=== PATIENT | female | born 1975 | race Caucasian/White ===

== ENCOUNTER 2017-11-22 21:18 | Emergency (ER) | END 2017-11-22 21:55 | disposition left against medical advice (07) ==

== ENCOUNTER 2019-02-17 07:42 | Day surgery (SDC) | payer OTHER ==
[~2019-02-17] VITALS: Ht 149.9 cm; Wt 58.6 kg
[2019-02-17] VITALS (12 sets, daily range): BP systolic 105–152; BP diastolic 60–70; PULSE 70–88; RESP 13–19; Ht 149.9 cm; Wt 58.6 kg
--- NOTE | 2019-02-17 07:51 | HPN ---
Date/Time of Note Date/Time of Note DATE: 02/17/19 TIME: 07:51 Interval H&P Admission Note Pt. seen H&P reviewed: No system changes SHANDRA MORALES MD Feb 17, 2019 07:51
[2019-02-17] MEDS ORDERED: CEFAZOLIN 1 GM/50 ML (PMX) 50 ML IVPB ONE ×2 (08:00→10:34)
[2019-02-17] MEDS ORDERED: POLYMYXIN/BACITRACIN 1L IRRIG IRR ONE (08:00)
[2019-02-17] MEDS ORDERED: SOD CHLORIDE 0.9% 1,000 ML IV SCH (08:00)
[2019-02-17] MEDS ORDERED: HEPARIN 1000 UNITS/ML 10 ML INJ ONE (08:56)
[2019-02-17] MEDS ORDERED: LIDOCAINE 1%/EPI (1:100,000) (MDV) 20 ML ONE (08:56)
[2019-02-17] MEDS ORDERED: MIDAZOLAM 1 MG/ML 2 ML INJ ONE (10:34)
[2019-02-17] MEDS ORDERED: FENTAnyl 50 MCG/ML VIAL ONE (10:34)
[2019-02-17] MEDS ORDERED: HYDROCODONE/APAP (5/325) TAB PO PRN (11:30)
== END 2019-02-17 14:05 | disposition home or self-care (01) ==
LOC: SDS 07:42
PROVIDERS: ATTEND Internal Medicine Hematology & Oncology
DX: C50.911 Malignant neoplasm of unspecified site of right female breast (principal)
CPT/HCPCS: 36561; 76942; C1788; J0690; J1644; J2250; J3010; Z7610

== ENCOUNTER 2019-03-03 12:01 | Inpatient (IN) | payer OTHER ==
[~2019-03-03] VITALS: Ht 152.4 cm; Wt 57.7 kg
[2019-03-03 17:15] VITALS: BP 123/69; PULSE 110; RESP 20
[2019-03-03 17:20] VITALS: Ht 152.4 cm; Wt 57.7 kg
[2019-03-03] MEDS ORDERED: ALBUTEROL/IPRATROPIUM (NEB) 3 ML AMP HHN PRN (18:00)
[2019-03-03] MEDS ORDERED: NITROGLYCERIN (SL) 0.4 MG TAB SL PRN (18:00)
[2019-03-03] MEDS ORDERED: LORAZEPAM 2 MG INJ IV PRN (18:00)
[2019-03-03] MEDS ORDERED: morphine 2 MG INJ IV PRN (18:00)
[2019-03-03] MEDS ORDERED: NACL 0.9% 3 ML SYG IV SCH (18:00)
[2019-03-03] MEDS ORDERED: hydrALAzine 20 MG INJ IV PRN (18:00)
[2019-03-03] MEDS ORDERED: MAGNESIUM HYDROXIDE 30ML CUP PO PRN (18:00)
[2019-03-03] MEDS ORDERED: ONDANSETRON 4 MG INJ IV PRN (18:00)
[2019-03-03] MEDS ORDERED: HYDROCODONE/APAP (5/325) TAB PO PRN (18:00)
[2019-03-03] MEDS ORDERED: DOCUSATE SODIUM 100 MG CAP PO PRN (18:00)
--- NOTE | 2019-03-03 18:51 | HP ---
DATE OF ADMISSION: 03/03/2019 IDENTIFICATION: This is a 43-year-old female. CHIEF COMPLAINT: Neutropenic fever. HISTORY OF PRESENT ILLNESS: A 43-year-old female recently diagnosed with right breast cancer in 11/23, who started chemotherapy 10 days ago, who was transferred from outside hospital due to insurance purposes. She has been experiencing fevers and chills for the last 24 hours. Again, she received h er first chemotherapy 10 days ago. She was doing well until about the last 24 hours when after she h ad received G-CSF injection in the clinic, she started developing fevers and chills for 1 day. She a lso complained of some throat pain and some loose stools, but no upper or lower GI bleeding, no diarr hea or constipation, no chest pain or shortness of breath, no headaches or dizziness or loss of consc iousness, no significant nausea, vomiting, no signs of any upper or lower GI bleeding. She does have 1 potential sick contact. Apparently, her has been having some cough symptoms for the last 1 to 2 weeks. Denies any dysuria or hematuria. She does have a left chest wall port in place. When she went to the outside ER today, she was found to have a white blood cell count of 1.1 and she also had elevated temperature at the outside hospital, fever noted at 38.4 degrees Celsius and she was gi keith broad broad-spectrum antibiotics. Cultures were drawn and those results are still pending. Rest of her vital signs was stable. She was transferred again over here due to insurance purposes. PAST MEDICAL HISTORY: As stated above. ALLERGIES: NO KNOWN DRUG ALLERGIES. HOME MEDICATIONS: She has been takin. As needed antiemetics at home. 2. Medicines for GERD. PAST SURGICAL HISTORY: Again, she had Port-A-Cath in place. No other surgeries. SOCIAL HISTORY: Negative for smoking, drinking or IV drug abuse. FAMILY HISTORY: Unknown. PHYSICAL EXAMINATION: VITAL SIGNS: Today, T-max 38.4, pulse 96, respirations 16, blood pressure 99/56, satting at 98% on r oom air. GENERAL: The patient is lying in bed, answering questions appropriately. Family is at the bedside. No acute distress. HEENT: Pupils are equal, round, reactive to light. Extraocular muscles are intact. NECK: Supple. No thyromegaly. LUNGS: Clear to auscultation bilaterally. CARDIOVASCULAR: S1, S2 heard. No rubs or gallop. CHEST: Left wall chest port noted clean, dry and intact. ABDOMEN: Soft, nontender, nondistended. Normal bowel sounds. No rebound or guarding. MUSCULOSKELETAL: No lower extremity edema bilaterally. NEUROLOGIC: No focal deficits. LABORATORIES: Again, WBC 1.1, hemoglobin 9.8, hematocrit 29.3, platelets 137. Sodium 139, potassium 3.9, chloride 109, CO2 of 23, BUN 5, creatinine 0.52, glucose unknown. DIAGNOSTIC DATA: The patient had a chest x-ray that showed no evidence of any acute cardiopulmonary disease. ASSESSMENT AND PLAN: A 43-year-old female transferred from outside hospital with neutropenic fever w ith recent chemotherapy 10 days ago for right breast cancer. 1. Neutropenic fever again likely secondary to patient's chemotherapy. She did have fever and chill s for 1 day prior to admission. Admit the patient and put her on broad spectrum antibiotics. Follow up final culture results that were drawn at the outside hospital. We will get hematology/oncology c onsult as well. Check TSH, A1c, lipid panel. Give her IV fluids, Tylenol p.r.n. pain and fevers. T he patient may benefit from Neupogen or another stimulating medication for the white blood cells. Mario Alberto gonzalez, we will discuss this with the hematology/oncology team and await their input. 2. History of right breast cancer. Again, she was started on chemotherapy earlier this month. We w ill follow up hematology/oncology recommendations regarding this. 3. Normocytic anemia. Hemoglobin appears to be stable. Continue to monitor for now. Dictated By: DARIEN BRUNO Conf#: [id number] DID#: [id number]
[2019-03-03] MEDS: SOD CHLORIDE 0.45% 1,000 ML IV SCH (19:11)
[2019-03-03] MEDS: PIPER-TAZO 3.375 GM IV (PMX) 100 ML IVPB SCH (19:26)
[2019-03-03 19:35] VITALS: BP 123/64; PULSE 113; RESP 16
[2019-03-03] MEDS: ACETAMINOPHEN 325 MG TAB PO PRN (20:10)
[2019-03-03 22:18] VITALS: BP 99/56; PULSE 84; RESP 18
[2019-03-04] MEDS: PIPER-TAZO 3.375 GM IV (PMX) 100 ML IVPB SCH ×4 (00:30→18:11)
[2019-03-04 01:53] VITALS: BP 93/52; PULSE 88; RESP 20
[2019-03-04 08:04] VITALS: BP 120/59; PULSE 88; RESP 18
--- NOTE | 2019-03-04 10:03 | CONS ---
DATE OF ADMISSION: 03/03/2019 DATE OF CONSULTATION: 03/04/2019 TYPE OF CONSULTATION: Infectious Disease. REASON FOR CONSULTATION: Antibiotic management. HISTORY OF PRESENT ILLNESS: The patient is a 43-year-old female who comes in with neutropen ic fever. The patient was recently diagnosed with right breast cancer in 11/2018, was started on chetan motherapy 10 days ago. She was transferred from an outside hospital and has been experiencing fever and chills for the last 24 hours. After received G-CSF injection in the clinic, she started developi ng fever and chills of 1 day's duration. She complained of throat pain and loose stools but no upper GI bleeding, no diarrhea or constipation, no chest pain or shortness of breath. She does have a sic k contact. Apparently, her has been having some cough symptoms for the last 1 to 2 weeks. S he has a left chest wall Port-A-Cath in place. In the emergency room, she was found to have white co unt of 1.1 with an elevated temperature at the outside hospital of 38.4 celsius and was placed on bro ad spectrum antibiotics. Cultures were drawn and are pending. PAST MEDICAL HISTORY: Operations: Status post Port-A-Cath. No other surgeries. FAMILY HISTORY: Noncontributory. SOCIAL HISTORY: She does not smoke, drink or abuse drugs. ALLERGIES: NONE TO PENICILLIN, SULFA OR FOODS. MEDICATIONS: Per chart. REVIEW OF SYSTEMS: Noncontributory. PHYSICAL EXAMINATION: GENERAL: The patient is lying in bed, in no acute distress. VITAL SIGNS: Stable. T-max 38.4. SKIN: Without generalized rash. HEENT: Within normal limits. NECK: Supple. LYMPH NODES: None palpable. CHEST: Decreased breath sounds at the bases. THORAX: She has a left chest Port-A-Cath. HEART: Without murmur or gallop. ABDOMEN: Soft, nontender, without organomegaly, splenomegaly or masses. EXTREMITIES: Without cyanosis, clubbing, or edema. RECTAL AND GENITAL: Deferred. NEUROLOGIC: No focal neurological abnormality. LABORATORY DATA: Her white count today is 3.4, hemoglobin and hematocrit 9.7 and 29.1, platelet coun t 261,000. She has 10 polys and 32 bands, so she has about 40% of 3.4, so she is not absolutely neut ropenic at this point. IMPRESSION AND PLAN: She has inserted tunneled catheter as noted. The patient was begun on Zosyn. Cultures are pending. We will continue him on this regimen. I will dictate my findings to the hospi talist. Dictated By: DINA MANCERA MD, JD/HARIKA Conf#: [id number] DID#: [id number] CC: DARIEN HUMPHRIES; TINO ALEJANDRA;*End*
--- NOTE | 2019-03-04 12:32 | PN ---
Date/Time of Note Date/Time of Note DATE: 03/04/19 TIME: 12:27 Assessment/Plan VTE Prophylaxis Risk score (from Ns)>0 risk: 2 SCD applied (from Nsg): Yes Pharmacological prophylaxis: other Lines/Catheters IV Catheter Type (from Nrs): Peripheral IV Assessment/Plan Hospital Course S: Patient seen by ID team yesterday. Waiting to be seen by hematology oncology team. Patient did have fever 102 last night, but no fevers this morning. O: VS - see below PHYSICAL EXAMINATION: GENERAL: lying in bed, answering questions appropriately. No acute distress. HEENT: Pupils are equal, round, reactive to light. Extraocular muscles are intact. NECK: Supple. No thyromegaly. LUNGS: Clear to auscultation bilaterally. CARDIOVASCULAR: S1, S2 heard. No rubs or gallop. CHEST: Left wall chest port noted clean, dry and intact. ABDOMEN: Soft, nontender, nondistended. Normal bowel sounds. No rebound or guarding. MUSCULOSKELETAL: No lower extremity edema bilaterally. NEUROLOGIC: No focal deficits. ASSESSMENT AND PLAN: 43-year-old female transferred from outside hospital with neutropenic fever with recent chemotherapy about 2 weeks ago for right breast cancer. 1. Neutropenic fever- again likely secondary to patient's chemotherapy she received about 2 weeks ago. She did have fever and chills for 1 day prior to admission. White blood cell count today 3.4 -Follow-up ID recommendations and continue on current broad spectrum antibiotics. - Follow up final culture results that were drawn at the outside hospital, as well as here -Follow-up recommendations from hematology/oncology consult as well- The patient may benefit from Neupogen or another stimulating medication for the white blood cells. Again, we will discuss this with the hematology/oncology team and await their input. -Continue IV fluids, Tylenol p.r.n. pain and fevers. 2. History of right breast cancer. Again, she was started on chemotherapy earlier this month. -Monitor, we will follow up hematology/oncology recommendations regarding this. 3. Normocytic anemia. Hemoglobin appears to be stable. - Continue to monitor for now. Result Diagram: 03/04/19 0420 03/04/19 0420 Results 24hrs Laboratory Tests Test 03/03/19 18:08 03/03/19 22:29 03/04/19 01:56 03/04/19 04:20 Lactic Acid Level 1.0 0.9 0.7 Free Thyroxine 1.13 White Blood Count 3.4 L Red Blood Count 3.42 L Hemoglobin 9.7 L Hematocrit 29.1 L Mean Corpuscular 85.1 Volume Mean Corpuscular 28.4 L Hemoglobin Mean Corpuscular 33.3 Hemoglobin Concent Red Cell 11.9 Distribution Width Platelet Count 161 Mean Platelet Volume 9.7 Immature 5.800 H Granulocytes % Neutrophils % Segmented 10 L Neutrophils % (Manual) Band Neutrophils % 32 H (Manual) Lymphocytes % Lymphocytes % 28 (Manual) Reactive Lymphocytes 3 H % (Manual) Monocytes % Monocytes % (Manual) 16 H Eosinophils % Basophils % Basophils % (Manual) 1 Metamyelocytes % 2 H (manual) Myelocytes % 6 H (Manual) Promyelocytes % 2 H (Manual) Nucleated Red Blood 1 H Cells % Immature 0.200 H Granulocytes # Neutrophils # Neutrophils # 0.4 L (Manual) Band Neutrophils # 1.0 H Lymphocytes (Manual) 0.9 Lymphocytes # Reactive Lymphocytes 0.1 H # Monocytes # Monocytes # (Manual) 0.5 Eosinophils # Basophils # Basophils # (Manual) 0.0 Metamyelocytes # 0.0 Myelocytes # 0.2 H Promyelocytes # 0.0 Nucleated Red Blood Cells # Platelet Estimate NORMAL Giant Platelets 2 H Polychromasia 1+ Poikilocytosis 1+ Anisocytosis 1+ Microcytosis 1+ Sodium Level 142 Potassium Level 3.7 Chloride Level 107 Carbon Dioxide Level 26 Anion Gap 9 Blood Urea Nitrogen 7 Creatinine 0.58 Est Glomerular > 60 Filtrat Rate mL/min Glucose Level 95 Hemoglobin A1c 5.4 Calcium Level 8.8 Phosphorus Level 3.1 Magnesium Level 2.0 Triglycerides Level 120 Cholesterol Level 120 LDL Cholesterol, 67 Calculated HDL Cholesterol 29 L Cholesterol/HDL 4.1 Ratio Thyroid Stimulating 2.910 Hormone (TSH) Exam/Review of Systems Exam Vitals Vital Signs Date Temp Pulse Resp B/P (MAP) Pulse Ox O2 O2 Flow FiO2 Time Delivery Rate 03/04/19 99.3 88 18 120/59 99 08:04 (79) 03/03/19 Room Air 17:15 Intake and Output 03/03/19 03/03/19 03/04/19 1515:00 23:00 07:00 IntakeIntake Total 100 ml 1015 ml BalanceBalance 100 ml 1015 ml Results Results 24hrs Laboratory Tests Test 03/03/19 18:08 03/03/19 22:29 03/04/19 01:56 03/04/19 04:20 Lactic Acid Level 1.0 0.9 0.7 Free Thyroxine 1.13 White Blood Count 3.4 L Red Blood Count 3.42 L Hemoglobin 9.7 L Hematocrit 29.1 L Mean Corpuscular 85.1 Volume Mean Corpuscular 28.4 L Hemoglobin Mean Corpuscular 33.3 Hemoglobin Concent Red Cell 11.9 Distribution Width Platelet Count 161 Mean Platelet Volume 9.7 Immature 5.800 H Granulocytes % Neutrophils % Segmented 10 L Neutrophils % (Manual) Band Neutrophils % 32 H (Manual) Lymphocytes % Lymphocytes % 28 (Manual) Reactive Lymphocytes 3 H % (Manual) Monocytes % Monocytes % (Manual) 16 H Eosinophils % Basophils % Basophils % (Manual) 1 Metamyelocytes % 2 H (manual) Myelocytes % 6 H (Manual) Promyelocytes % 2 H (Manual) Nucleated Red Blood 1 H Cells % Immature 0.200 H Granulocytes # Neutrophils # Neutrophils # 0.4 L (Manual) Band Neutrophils # 1.0 H Lymphocytes (Manual) 0.9 Lymphocytes # Reactive Lymphocytes 0.1 H # Monocytes # Monocytes # (Manual) 0.5 Eosinophils # Basophils # Basophils # (Manual) 0.0 Metamyelocytes # 0.0 Myelocytes # 0.2 H Promyelocytes # 0.0 Nucleated Red Blood Cells # Platelet Estimate NORMAL Giant Platelets 2 H Polychromasia 1+ Poikilocytosis 1+ Anisocytosis 1+ Microcytosis 1+ Sodium Level 142 Potassium Level 3.7 Chloride Level 107 Carbon Dioxide Level 26 Anion Gap 9 Blood Urea Nitrogen 7 Creatinine 0.58 Est Glomerular > 60 Filtrat Rate mL/min Glucose Level 95 Hemoglobin A1c 5.4 Calcium Level 8.8 Phosphorus Level 3.1 Magnesium Level 2.0 Triglycerides Level 120 Cholesterol Level 120 LDL Cholesterol, 67 Calculated HDL Cholesterol 29 L Cholesterol/HDL 4.1 Ratio Thyroid Stimulating 2.910 Hormone (TSH) Medications Medication Current Medications IV Flush (NS 3 ml) 3 ml PER PROTOCOL IV ; Start 03/03/19 at 18:00 Ondansetron HCl (Zofran Inj) 4 mg Q6H PRN IV NAUSEA/VOMITING; Start 03/03/19 at 18:00 Acetaminophen (Tylenol Tab) 650 mg Q6H PRN PO .PAIN 1-3 OR TEMP Last administered on 03/03/19at 20:10; Admin Dose 650 MG; Start 03/03/19 at 18:00 Acetaminophen/ Hydrocodone Bitart ([place] (5/325)) 1 tab Q6H PRN PO .MOD PAIN 4- 6; Start 03/03/19 at 18:00 Morphine Sulfate (morphine) 2 mg Q4H PRN IV .SEVERE PAIN 7-10; Start 03/03/19 at 18:00 Docusate Sodium (Colace) 100 mg Q12H PRN PO .CONSTIPATION; Start 03/03/19 at 18:00 Magnesium Hydroxide (Milk Of Mag) 30 ml DAILY PRN PO .CONSTIPATION; Start 03/03/19 at 18:00 Sodium Chloride 1,000 ml @ 75 mls/hr [id number] IV Last administered on 03/03/19at 19:11; Admin Dose 75 MLS/HR; Start 03/03/19 at 17:43 Lorazepam (Ativan) 0.5 mg Q6H PRN IV ANXIETY; Start 03/03/19 at 18:00 Albuterol/ Ipratropium (Duoneb) 3 ml Q4H RESP THERAPY PRN HHN SHORTNESS OF BREATH; Start 03/03/19 at 18:00 Piperacillin Sod/ Tazobactam Sod 100 ml @ 200 mls/hr Q6 IVPB Last administered on 03/04/19at 05:56; Admin Dose 200 MLS/HR; Start 03/03/19 at 18:00 Hydralazine HCl (Apresoline) 10 mg Q6H PRN IV ELEVATED BLOOD PRESSURE; Start 03/03/19 at 18:00 Nitroglycerin (Nitroglycerin (Sl Tab) 0.4 Mg) 1 tab Q5M PRN SL ANGINA; Start 03/03/19 at 18:00 DARIEN HUMPHRIES Mar 04, 2019 12:32
[2019-03-04] MEDS: SOD CHLORIDE 0.45% 1,000 ML IV SCH ×2 (13:11→20:23)
[2019-03-04 14:50] VITALS: BP 125/69; PULSE 73; RESP 18
--- NOTE | 2019-03-04 16:39 | CONS ---
Assessment/Plan Assessment/Plan Hospital Course (Demo Recall) ID PROGRESS NOTE CURRENT ABX: DAY # => Zosyn 03/04/1941903/04/19419 24H INTERVAL SUMMARY * 43-year-old female transferred from outside hospital with neutropenic fever with recent chemotherapy about 2 weeks ago for right breast cancer. * Today she is A/A/O -- feeling better = "Mejor" and currently eating dinner without distress. * Tmax today 99.3 -- TMax yesterday >102.+ * INVASIVE: Left chest Port-A-Cath placed 02/17/19 DIAGNOSTIC IMAGING * N/A this admission MICRO/OTHER * No BCx results * PHYSICAL EXAMINATION: GENERAL: VSS, NAD HEENT: AT, NC, anicteric, NECK: Supple, CHEST: Equal chest rise bilaterally, without dyspnea on observation HEART: Pulse RRR ABDOMEN: Soft / NT EXTREMITIES: Warm, dry SKIN: No rash, no diaphoresis ID ASSESSMENT 43 yo F TNS from outside facility w/neutropenic fevers-> s/p recent chemo Tx admit with: 1. Neutropenic fevers-> secondary to patient's chemotherapy she received about 2 weeks ago. 2. Right breast cancer-> STG 1B (pT2pN1,M0)/ER(+)/[place](+)/HER2/ophelia(-). * HEMEONC PLAN PER NOTES: Pre-operative chemo initiated, followed by resection & XRT. 3. Normocytic anemia-> appears to be stable. 4. (+)FH Cancer: Mother w/Esophageal CA; Grandmother w/Breast CA ABX ALLERGIES: KNDA INVASIVES: PIV, Left chest Port-A-Cath CURRENT ABX: DAY # =>Zosyn ID RECOMMENDATIONS/PLAN: 1. Continue Zosyn -- Will f/u with patient tomorrow. . Consultation Date/Type/Reason Admit Date/Time Mar 03, 2019 at 16:35 Initial Consult Date Date/Time of Note DATE: 03/04/19 TIME: 16:38 Exam/Review of Systems Exam Vitals Vital Signs Date Temp Pulse Resp B/P (MAP) Pulse Ox O2 O2 Flow FiO2 Time Delivery Rate 03/04/19 98.2 73 18 125/69 98 14:50 (87) 03/03/19 Room Air 17:15 Intake and Output 03/03/19 03/03/1903/04/19 1515:00 23:00 07:00 IntakeIntake Total 100 ml 1015 ml BalanceBalance 100 ml 1015 ml Results Result Diagram: 03/04/19 0420 03/04/19 0420 Results 24hrs Laboratory Tests Test 03/03/19 18:08 03/03/19 22:29 03/04/19 01:56 03/04/19 04:20 Lactic Acid Level 1.0 0.9 0.7 Free Thyroxine 1.13 White Blood Count 3.4 L Red Blood Count 3.42 L Hemoglobin 9.7 L Hematocrit 29.1 L Mean Corpuscular 85.1 Volume Mean Corpuscular 28.4 L Hemoglobin Mean Corpuscular 33.3 Hemoglobin Concent Red Cell 11.9 Distribution Width Platelet Count 161 Mean Platelet Volume 9.7 Immature 5.800 H Granulocytes % Neutrophils % Segmented 10 L Neutrophils % (Manual) Band Neutrophils % 32 H (Manual) Lymphocytes % Lymphocytes % 28 (Manual) Reactive Lymphocytes 3 H % (Manual) Monocytes % Monocytes % (Manual) 16 H Eosinophils % Basophils % Basophils % (Manual) 1 Metamyelocytes % 2 H (manual) Myelocytes % 6 H (Manual) Promyelocytes % 2 H (Manual) Nucleated Red Blood 1 H Cells % Immature 0.200 H Granulocytes # Neutrophils # Neutrophils # 0.4 L (Manual) Band Neutrophils # 1.0 H Lymphocytes (Manual) 0.9 Lymphocytes # Reactive Lymphocytes 0.1 H # Monocytes # Monocytes # (Manual) 0.5 Eosinophils # Basophils # Basophils # (Manual) 0.0 Metamyelocytes # 0.0 Myelocytes # 0.2 H Promyelocytes # 0.0 Nucleated Red Blood Cells # Platelet Estimate NORMAL Giant Platelets 2 H Polychromasia 1+ Poikilocytosis 1+ Anisocytosis 1+ Microcytosis 1+ Sodium Level 142 Potassium Level 3.7 Chloride Level 107 Carbon Dioxide Level 26 Anion Gap 9 Blood Urea Nitrogen 7 Creatinine 0.58 Est Glomerular > 60 Filtrat Rate mL/min Glucose Level 95 Hemoglobin A1c 5.4 Calcium Level 8.8 Phosphorus Level 3.1 Magnesium Level 2.0 Triglycerides Level 120 Cholesterol Level 120 LDL Cholesterol, 67 Calculated HDL Cholesterol 29 L Cholesterol/HDL 4.1 Ratio Thyroid Stimulating 2.910 Hormone (TSH) Medications Medication Current Medications IV Flush (NS 3 ml) 3 ml PER PROTOCOL IV ; Start 03/03/19 at 18:00 Ondansetron HCl (Zofran Inj) 4 mg Q6H PRN IV NAUSEA/VOMITING; Start 03/03/19 at 18:00 Acetaminophen (Tylenol Tab) 650 mg Q6H PRN PO .PAIN 1-3 OR TEMP Last administered on 03/03/19at 20:10; Admin Dose 650 MG; Start 03/03/19 at 18:00 Acetaminophen/ Hydrocodone Bitart ([place] (5/325)) 1 tab Q6H PRN PO .MOD PAIN 4- 6; Start 03/03/19 at 18:00 Morphine Sulfate (morphine) 2 mg Q4H PRN IV .SEVERE PAIN 7-10; Start 03/03/19 at 18:00 Docusate Sodium (Colace) 100 mg Q12H PRN PO .CONSTIPATION; Start 03/03/19 at 18:00 Magnesium Hydroxide (Milk Of Mag) 30 ml DAILY PRN PO .CONSTIPATION; Start at 18:00 Sodium Chloride 1,000 ml @ 75 mls/hr [id number] IV Last administered on 03/04/19at 13:11; Admin Dose 75 MLS/HR; Start 03/03/19 at 17:43 Lorazepam (Ativan) 0.5 mg Q6H PRN IV ANXIETY; Start 03/03/19 at 18:00 Albuterol/ Ipratropium (Duoneb) 3 ml Q4H RESP THERAPY PRN HHN SHORTNESS OF ABUNDIO ATH; Start 03/03/19 at 18:00 Piperacillin Sod/ Tazobactam Sod 100 ml @ 200 mls/hr Q6 IVPB Last administered on 03/04/19at 13:11; Admin Dose 200 MLS/HR; Start 03/03/19 at 18:00 Hydralazine HCl (Apresoline) 10 mg Q6H PRN IV ELEVATED BLOOD PRESSURE; Start 03/03/19 at 18:00 Nitroglycerin (Nitroglycerin (Sl Tab) 0.4 Mg) 1 tab Q5M PRN SL ANGINA; Start 03/03/19 at 18:00 ANNAMARIE QUIROZ NP Mar 04, 2019 16:39
[2019-03-04 20:00] VITALS: BP 123/60; PULSE 90; RESP 18
[2019-03-05] MEDS: PIPER-TAZO 3.375 GM IV (PMX) 100 ML IVPB SCH ×4 (00:17→17:31)
[2019-03-05 02:00] VITALS: BP 112/59; PULSE 90; RESP 19
[2019-03-05] MEDS: SOD CHLORIDE 0.45% 1,000 ML IV SCH ×2 (05:03→09:43)
--- NOTE | 2019-03-05 07:54 | CONS ---
Assessment/Plan Assessment/Plan Hospital Course (Demo Recall) pleasant 43 yo with locally advanced ER/PA+ her 2 ophelia negative breast ca s/p cycle 1 chemo admitted wit neutropenic fevers cont GCSF x 1 more day cont empiric abx f/u cultures cont IVF and supportive care, antiemetics will likely need dose reduction with subsequent treatments she did receive GCSF as an out pt, labs from 02/28 also showed neutropenia she is mildly anemic due top chemo, no intervention check iron studies Dr Bush will see the patient tomorrow Consultation Date/Type/Reason Admit Date/Time Mar 03, 2019 at 16:35 Date/Time of Note DATE: 03/05/19 TIME: 07:53 Hx of Present Illness 43 yearold female with locally advanced node positive right-sided breast cancer, ER positive PA positive HER2/ophelia negative not amplified Had neoadjuvant chemotherapy #1 Taxotere Adriamycin Cytoxan on 02/21/2109. Admitted with neutropenic fevers Her may have had URI. She notes sore throat and loose stool but has no ALVARADO/dizziness/fevers/N/V/abdo pain. She is on GCSF and her WBC is improved today. She is on broad spectrum abx. She has a vesicle on her lower right lip, no mouth sores or mucositis. Constitutional: no complaints, improved, chills, poor po ENT: other (lip sore) Respiratory: no complaints Cardiovascular: no complaints Past Medical History Home Meds No Active Prescriptions or Reported Meds Medications Current Medications IV Flush (NS 3 ml) 3 ml PER PROTOCOL IV ; Start 03/03/19 at 18:00 Ondansetron HCl (Zofran Inj) 4 mg Q6H PRN IV NAUSEA/VOMITING; Start 03/03/19 at 18:00 Acetaminophen (Tylenol Tab) 650 mg Q6H PRN PO .PAIN 1-3 OR TEMP Last administered on 03/03/19at 20:10; Admin Dose 650 MG; Start 03/03/19 at 18:00 Acetaminophen/ Hydrocodone Bitart ([place] (5/325)) 1 tab Q6H PRN PO .MOD PAIN 4- 6; Start 03/03/19 at 18:00 Morphine Sulfate (morphine) 2 mg Q4H PRN IV .SEVERE PAIN 7-10; Start 03/03/19 at 18:00 Docusate Sodium (Colace) 100 mg Q12H PRN PO .CONSTIPATION; Start 03/03/19 at 18:00 Magnesium Hydroxide (Milk Of Mag) 30 ml DAILY PRN PO .CONSTIPATION; Start 03/03/19 at 18:00 Sodium Chloride 1,000 ml @ 75 mls/hr [id number] IV Last administered on 03/05/19at 05:03; Admin Dose 75 MLS/HR; Start 03/03/19 at 17:43 Lorazepam (Ativan) 0.5 mg Q6H PRN IV ANXIETY; Start 03/03/19 at 18:00 Albuterol/ Ipratropium (Duoneb) 3 ml Q4H RESP THERAPY PRN HHN SHORTNESS OF BREATH; Start 03/03/19 at 18:00 Piperacillin Sod/ Tazobactam Sod 100 ml @ 200 mls/hr Q6 IVPB Last administered on 03/05/19at 05:30; Admin Dose 200 MLS/HR; Start 03/03/19 at 18:00 Hydralazine HCl (Apresoline) 10 mg Q6H PRN IV ELEVATED BLOOD PRESSURE; Start 03/03/19 at 18:00 Nitroglycerin (Nitroglycerin (Sl Tab) 0.4 Mg) 1 tab Q5M PRN SL ANGINA; Start 03/03/19 at 18:00 Allergies: Coded Allergies: No Known Drug Allergy (Verified Allergy, Unknown, 02/17/19) Social History Smoking Status: Never smoker Exam/Review of Systems Exam Vitals Vital Signs Date Temp Pulse Resp B/P (MAP) Pulse Ox O2 O2 Flow FiO2 Time Delivery Rate 03/05/19 98.3 90 19 112/59 100 02:00 (76) 03/03/19 Room Air 17:15 Intake and Output 03/04/19 03/04/19 03/05/19 1515:00 23:00 07:00 IntakeIntake Total 1725 ml 460 ml 900 ml BalanceBalance 1725 ml 460 ml 900 ml Constitutional: alert, frail Psych: no complaints, nl mood/affect Head: normocephalic, atraumatic Eyes: nl conjunctiva, EOMI, nl lids, nl sclera, PERRL Neck: supple, non-tender Gastrointestinal: soft, nl liver, spleen, non-tender Results Result Diagram: 03/05/19 0453 03/05/19 0453 Results 24hrs Laboratory Tests Test 03/04/19 18:00 03/05/19 04:53 Urine Color YELLOW Urine Clarity CLEAR Urine pH 5.0 Urine Specific [place] 1.014 Urine Ketones 1+ H Urine Nitrite NEGATIVE Urine Bilirubin NEGATIVE Urine Urobilinogen NEGATIVE Urine Leukocyte Esterase NEGATIVE Urine Hemoglobin NEGATIVE Urine Glucose NEGATIVE Urine Total Protein NEGATIVE White Blood Count 3.6 L Red Blood Count 3.36 L Hemoglobin 9.5 L Hematocrit 28.0 L Mean Corpuscular Volume 83.3 Mean Corpuscular Hemoglobin 28.3 L Mean Corpuscular Hemoglobin Concent 33.9 Red Cell Distribution Width 12.0 Platelet Count 229 # Mean Platelet Volume 9.4 Immature Granulocytes % 9.500 H Neutrophils % Segmented Neutrophils % (Manual) 32 L Band Neutrophils % (Manual) 5 H Lymphocytes % Lymphocytes % (Manual) 43 Reactive Lymphocytes % (Manual) 5 H Monocytes % Monocytes % (Manual) 7 Eosinophils % Basophils % Basophils % (Manual) 1 Metamyelocytes % (manual) 1 H Myelocytes % (Manual) 4 H Promyelocytes % (Manual) 2 H Nucleated Red Blood Cells % 2 H Immature Granulocytes # 0.340 H Neutrophils # Neutrophils # (Manual) 1.2 L Band Neutrophils # 0.1 Lymphocytes (Manual) 1.5 Lymphocytes # Reactive Lymphocytes # 0.1 H Monocytes # Monocytes # (Manual) 0.2 L Eosinophils # Basophils # Basophils # (Manual) 0.0 Metamyelocytes # 0.0 Myelocytes # 0.1 H Promyelocytes # 0.0 Nucleated Red Blood Cells # Platelet Estimate NORMAL Polychromasia 1+ Poikilocytosis 1+ Anisocytosis 1+ Microcytosis 1+ Sodium Level 144 Potassium Level 3.8 Chloride Level 109 Carbon Dioxide Level 27 Anion Gap 8 Blood Urea Nitrogen 5 L Creatinine 0.46 Est Glomerular Filtrat Rate mL/min > 60 Glucose Level 111 Calcium Level 9.1 Medications Medication Current Medications IV Flush (NS 3 ml) 3 ml PER PROTOCOL IV ; Start 03/03/19 at 18:00 Ondansetron HCl (Zofran Inj) 4 mg Q6H PRN IV NAUSEA/VOMITING; Start 03/03/19 at 18:00 Acetaminophen (Tylenol Tab) 650 mg Q6H PRN PO .PAIN 1-3 OR TEMP Last administered on 03/03/19at 20:10; Admin Dose 650 MG; Start 03/03/19 at 18:00 Acetaminophen/ Hydrocodone Bitart ([place] (5/325)) 1 tab Q6H PRN PO .MOD PAIN 4- 6; Start 03/03/19 at 18:00 Morphine Sulfate (morphine) 2 mg Q4H PRN IV .SEVERE PAIN 7-10; Start 03/03/19 at 18:00 Docusate Sodium (Colace) 100 mg Q12H PRN PO .CONSTIPATION; Start 03/03/19 at 18:00 Magnesium Hydroxide (Milk Of Mag) 30 ml DAILY PRN PO .CONSTIPATION; Start 03/03/19 at 18:00 Sodium Chloride 1,000 ml @ 75 mls/hr [id number] IV Last administered on 03/05/19at 05:03; Admin Dose 75 MLS/HR; Start 03/03/19 at 17:43 Lorazepam (Ativan) 0.5 mg Q6H PRN IV ANXIETY; Start 03/03/19 at 18:00 Albuterol/ Ipratropium (Duoneb) 3 ml Q4H RESP THERAPY PRN HHN SHORTNESS OF BREATH; Start 03/03/19 at 18:00 Piperacillin Sod/ Tazobactam Sod 100 ml @ 200 mls/hr Q6 IVPB Last administered on 03/05/19at 05:30; Admin Dose 200 MLS/HR; Start 03/03/19 at 18:00 Hydralazine HCl (Apresoline) 10 mg Q6H PRN IV ELEVATED BLOOD PRESSURE; Start 03/03/19 at 18:00 Nitroglycerin (Nitroglycerin (Sl Tab) 0.4 Mg) 1 tab Q5M PRN SL ANGINA; Start 03/03/19 at 18:00 DEMETRI MARROQUIN Mar 05, 2019 07:54
[2019-03-05 08:15] VITALS: BP 121/60; PULSE 71; RESP 18
[2019-03-05] MEDS ORDERED: DIPHENHYDRAMINE 25 MG CAP PO PRN (12:30)
--- NOTE | 2019-03-05 12:55 | PN ---
Date/Time of Note Date/Time of Note DATE: 03/05/19 TIME: 12:54 Assessment/Plan VTE Prophylaxis Risk score (from Nsg)>0 risk: 2 SCD applied (from Nsg): Yes Pharmacological prophylaxis: other Lines/Catheters IV Catheter Type (from Nrsg): Peripheral IV Urinary Cath still in place: No Assessment/Plan Hospital Course S: Patient had no fevers overnight, seen by hematology oncology team today. Presently ambulating with her in the hallways, no acute events overnight. O: VS - see below PHYSICAL EXAMINATION: GENERAL: lying in bed, answering questions appropriately. No acute distress. HEENT: Pupils are equal, round, reactive to light. Extraocular muscles are intact. NECK: Supple. No thyromegaly. LUNGS: Clear to auscultation bilaterally. CARDIOVASCULAR: S1, S2 heard. No rubs or gallop. CHEST: Left wall chest port noted clean, dry and intact. ABDOMEN: Soft, nontender, nondistended. Normal bowel sounds. No rebound or guarding. MUSCULOSKELETAL: No lower extremity edema bilaterally. NEUROLOGIC: No focal deficits. ASSESSMENT AND PLAN: 43-year-old female transferred from outside hospital with neutropenic fever with recent chemotherapy about 2 weeks ago for right breast cancer. 1. Neutropenic fever- again likely secondary to patient's chemotherapy she r eceived about 2 weeks ago. She did have fever and chills for 1 day prior to admission. White blood cell count today 3.6 -Follow-up ID recommendations and continue on current broad spectrum antibiot ics. - Follow up final culture results that were drawn at the outside hospital, as well as here -Follow-up recommendations from hematology/oncology consult as well- The patient may benefit from Neupogen or another stimulating medication for the white blood cells. Again, we will await their input on this -Continue IV fluids, Tylenol p.r.n. pain and fevers. 2. History of right breast cancer. Again, she was started on chemotherapy earlier this month. -Monitor, we will follow up hematology/oncology recommendations regarding this. 3. Normocytic anemia. Hemoglobin appears to be stable. - Continue to monitor for now. Result Diagram: 03/05/19 0453 03/05/19 0453 Results 24hrs Laboratory Tests Test 03/04/19 18:00 03/05/19 04:53 Urine Color YELLOW Urine Clarity CLEAR Urine pH 5.0 Urine Specific [place] 1.014 Urine Ketones 1+ H Urine Nitrite NEGATIVE Urine Bilirubin NEGATIVE Urine Urobilinogen NEGATIVE Urine Leukocyte Esterase NEGATIVE Urine Hemoglobin NEGATIVE Urine Glucose NEGATIVE Urine Total Protein NEGATIVE White Blood Count 3.6 L Red Blood Count 3.36 L Hemoglobin 9.5 L Hematocrit 28.0 L Mean Corpuscular Volume 83.3 Mean Corpuscular Hemoglobin 28.3 L Mean Corpuscular Hemoglobin Concent 33.9 Red Cell Distribution Width 12.0 Platelet Count 229 # Mean Platelet Volume 9.4 Immature Granulocytes % 9.500 H Neutrophils % Segmented Neutrophils % (Manual) 32 L Band Neutrophils % (Manual) 5 H Lymphocytes % Lymphocytes % (Manual) 43 Reactive Lymphocytes % (Manual) 5 H Monocytes % Monocytes % (Manual) 7 Eosinophils % Basophils % Basophils % (Manual) 1 Metamyelocytes % (manual) 1 H Myelocytes % (Manual) 4 H Promyelocytes % (Manual) 2 H Nucleated Red Blood Cells % 2 H Immature Granulocytes # 0.340 H Neutrophils # Neutrophils # (Manual) 1.2 L Band Neutrophils # 0.1 Lymphocytes (Manual) 1.5 Lymphocytes # Reactive Lymphocytes # 0.1 H Monocytes # Monocytes # (Manual) 0.2 L Eosinophils # Basophils # Basophils # (Manual) 0.0 Metamyelocytes # 0.0 Myelocytes # 0.1 H Promyelocytes # 0.0 Nucleated Red Blood Cells # Platelet Estimate NORMAL Polychromasia 1+ Poikilocytosis 1+ Anisocytosis 1+ Microcytosis 1+ Sodium Level 144 Potassium Level 3.8 Chloride Level 109 Carbon Dioxide Level 27 Anion Gap 8 Blood Urea Nitrogen 5 L Creatinine 0.46 Est Glomerular Filtrat Rate mL/min > 60 Glucose Level 111 Calcium Level 9.1 Exam/Review of Systems Exam Vitals Vital Signs Date Temp Pulse Resp B/P (MAP) Pulse Ox O2 O2 Flow FiO2 Time Delivery Rate 03/05/19 98.4 71 18 121/60 99 Room Air 08:15 (80) Intake and Output 03/04/19 03/04/19 03/05/19 1515:00 23:00 07:00 IntakeIntake Total 1725 ml 460 ml 900 ml BalanceBalance 1725 ml 460 ml 900 ml Results Results 24hrs Laboratory Tests Test 03/04/19 18:00 03/05/19 04:53 Urine Color YELLOW Urine Clarity CLEAR Urine pH 5.0 Urine Specific [place] 1.014 Urine Ketones 1+ H Urine Nitrite NEGATIVE Urine Bilirubin NEGATIVE Urine Urobilinogen NEGATIVE Urine Leukocyte Esterase NEGATIVE Urine Hemoglobin NEGATIVE Urine Glucose NEGATIVE Urine Total Protein NEGATIVE White Blood Count 3.6 L Red Blood Count 3.36 L Hemoglobin 9.5 L Hematocrit 28.0 L Mean Corpuscular Volume 83.3 Mean Corpuscular Hemoglobin 28.3 L Mean Corpuscular Hemoglobin Concent 33.9 Red Cell Distribution Width 12.0 Platelet Count 229 # Mean Platelet Volume 9.4 Immature Granulocytes % 9.500 H Neutrophils % Segmented Neutrophils % (Manual) 32 L Band Neutrophils % (Manual) 5 H Lymphocytes % Lymphocytes % (Manual) 43 Reactive Lymphocytes % (Manual) 5 H Monocytes % Monocytes % (Manual) 7 Eosinophils % Basophils % Basophils % (Manual) 1 Metamyelocytes % (manual) 1 H Myelocytes % (Manual) 4 H Promyelocytes % (Manual) 2 H Nucleated Red Blood Cells % 2 H Immature Granulocytes # 0.340 H Neutrophils # Neutrophils # (Manual) 1.2 L Band Neutrophils # 0.1 Lymphocytes (Manual) 1.5 Lymphocytes # Reactive Lymphocytes # 0.1 H Monocytes # Monocytes # (Manual) 0.2 L Eosinophils # Basophils # Basophils # (Manual) 0.0 Metamyelocytes # 0.0 Myelocytes # 0.1 H Promyelocytes # 0.0 Nucleated Red Blood Cells # Platelet Estimate NORMAL Polychromasia 1+ Poikilocytosis 1+ Anisocytosis 1+ Microcytosis 1+ Sodium Level 144 Potassium Level 3.8 Chloride Level 109 Carbon Dioxide Level 27 Anion Gap 8 Blood Urea Nitrogen 5 L Creatinine 0.46 Est Glomerular Filtrat Rate mL/min > 60 Glucose Level 111 Calcium Level 9.1 Medications Medication Current Medications IV Flush (NS 3 ml) 3 ml PER PROTOCOL IV ; Start 03/03/19 at 18:00 Ondansetron HCl (Zofran Inj) 4 mg Q6H PRN IV NAUSEA/VOMITING; Start 03/03/19 at 18:00 Acetaminophen (Tylenol Tab) 650 mg Q6H PRN PO .PAIN 1-3 OR TEMP Last administered on 03/03/19at 20:10; Admin Dose 650 MG; Start 03/03/19 at 18:00 Acetaminophen/ Hydrocodone Bitart ([place] (5/325)) 1 tab Q6H PRN PO .MOD PAIN 4- 6; Start 03/03/19 at 18:00 Morphine Sulfate (morphine) 2 mg Q4H PRN IV .SEVERE PAIN 7-10; Start 03/03/19 at 18:00 Docusate Sodium (Colace) 100 mg Q12H PRN PO .CONSTIPATION; Start 03/03/19 at 18:00 Magnesium Hydroxide (Milk Of Mag) 30 ml DAILY PRN PO .CONSTIPATION; Start 03/03/19 at 18:00 Sodium Chloride 1,000 ml @ 75 mls/hr [id number] IV Last administered on 03/05/19at 05:03; Admin Dose 75 MLS/HR; Start 03/03/19 at 17:43 Lorazepam (Ativan) 0.5 mg Q6H PRN IV ANXIETY; Start 03/03/19 at 18:00 Albuterol/ Ipratropium (Duoneb) 3 ml Q4H RESP THERAPY PRN HHN SHORTNESS OF BREATH; Start 03/03/19 at 18:00 Piperacillin Sod/ Tazobactam Sod 100 ml @ 200 mls/hr Q6 IVPB Last administered on 03/05/19at 12:20; Admin Dose 200 MLS/HR; Start 03/03/19 at 18:00 Hydralazine HCl (Apresoline) 10 mg Q6H PRN IV ELEVATED BLOOD PRESSURE; Start 03/03/19 at 18:00 Nitroglycerin (Nitroglycerin (Sl Tab) 0.4 Mg) 1 tab Q5M PRN SL ANGINA; Start 03/03/19 at 18:00 Docosanol (Abreva) 1 applic 5 TIMES DAILY TOP ; Start 03/05/19 at 15:00 Diphenhydramine HCl (Benadryl) 25 mg Q6H PRN PO ITCHING; Start 03/05/19 at 12:30 DARIEN HUMPHRIES Mar 05, 2019 12:55
[2019-03-05 14:05] VITALS: BP 136/74; PULSE 76; RESP 18
[2019-03-05] MEDS: DOCOSANOL 2 GM CREAM TOP SCH ×3 (15:00→21:00)
--- NOTE | 2019-03-05 17:12 | CONS ---
Assessment/Plan Assessment/Plan Hospital Course (Demo Recall) ID PROGRESS NOTE CURRENT ABX: DAY # => Zosyn 03/05/1945203/05/[id number] HPI: 43-year-old female transferred from outside hospital with neutropenic fever with recent chemotherapy about 2 weeks ago for right breast cancer. 24H INTERVAL SUMMARY * A/A/O -- no fevers -- feeling well, watching TV and talking on the phone * AFEBRILE x ~48H --> Tmax yesterday 99.3 -- TMax WEDNESDAY >102.+ * INVASIVE: Left chest Port-A-Cath placed 02/17/19 DIAGNOSTIC IMAGING * N/A this admission MICRO/OTHER * No BCx results PHYSICAL EXAMINATION: GENERAL: VSS, NAD HEENT: AT, NC, anicteric, NECK: Supple, CHEST: Equal chest rise bilaterally, without dyspnea on observation HEART: Pulse RRR ABDOMEN: Soft / NT EXTREMITIES: Warm, dry SKIN: No rash, no diaphoresis ID ASSESSMENT 43 yo F TNS from outside facility w/neutropenic fevers-> s/p recent chemo Tx admit with: 1. Neutropenic fevers-> secondary to patient's chemotherapy she received about 2 weeks ago. 2. Right breast cancer-> STG 1B (pT2pN1,M0)/ER(+)/TN(+)/HER2/ophelia(-). * HEMEONC PLAN PER NOTES: Pre-operative chemo initiated, followed by resection & XRT. 3. Normocytic anemia-> appears to be stable. 4. (+)FH Cancer: Mother w/Esophageal CA; Grandmother w/Breast CA ABX ALLERGIES: KNDA INVASIVES: PIV, Left chest Port-A-Cath CURRENT ABX: DAY # =>Zosyn ID RECOMMENDATIONS/PLAN: 1. Continue Zosyn -- Anticipate DC IV ABX when neutropenia improves, fevers, resolve as long as remains aseptic 2. ID colleague to f/u tomorrow . Consultation Date/Type/Reason Admit Date/Time Mar 03, 2019 at 16:35 Initial Consult Date Date/Time of Note DATE: 03/05/19 TIME: 17:04 Exam/Review of Systems Exam Vitals Vital Signs Date Temp Pulse Resp B/P (MAP) Pulse Ox O2 O2 Flow FiO2 Time Delivery Rate 03/05/19 98.4 76 18 136/74 99 Room Air 14:05 (94) Intake and Output 03/04/19 03/04/19 03/05/19 1515:00 23:00 07:00 IntakeIntake Total 1725 ml 460 ml 900 ml BalanceBalance 1725 ml 460 ml 900 ml Results Result Diagram: 03/05/19 0453 03/05/19 0453 Results 24hrs Laboratory Tests Test 03/04/19 18:00 03/05/19 04:52 03/05/19 04:53 Urine Color YELLOW Urine Clarity CLEAR Urine pH 5.0 Urine Specific [place] 1.014 Urine Ketones 1+ H Urine Nitrite NEGATIVE Urine Bilirubin NEGATIVE Urine Urobilinogen NEGATIVE Urine Leukocyte Esterase NEGATIVE Urine Hemoglobin NEGATIVE Urine Glucose NEGATIVE Urine Total Protein NEGATIVE Iron Level 92 Total Iron Binding Capacity 247 Percent Iron Saturation 37 White Blood Count 3.6 L Red Blood Count 3.36 L Hemoglobin 9.5 L Hematocrit 28.0 L Mean Corpuscular Volume 83.3 Mean Corpuscular Hemoglobin 28.3 L Mean Corpuscular Hemoglobin Concent 33.9 Red Cell Distribution Width 12.0 Platelet Count 229 # Mean Platelet Volume 9.4 Immature Granulocytes % 9.500 H Neutrophils % Segmented Neutrophils % (Manual) 32 L Band Neutrophils % (Manual) 5 H Lymphocytes % Lymphocytes % (Manual) 43 Reactive Lymphocytes % (Manual) 5 H Monocytes % Monocytes % (Manual) 7 Eosinophils % Basophils % Basophils % (Manual) 1 Metamyelocytes % (manual) 1 H Myelocytes % (Manual) 4 H Promyelocytes % (Manual) 2 H Nucleated Red Blood Cells % 2 H Immature Granulocytes # 0.340 H Neutrophils # Neutrophils # (Manual) 1.2 L Band Neutrophils # 0.1 Lymphocytes (Manual) 1.5 Lymphocytes # Reactive Lymphocytes # 0.1 H Monocytes # Monocytes # (Manual) 0.2 L Eosinophils # Basophils # Basophils # (Manual) 0.0 Metamyelocytes # 0.0 Myelocytes # 0.1 H Promyelocytes # 0.0 Nucleated Red Blood Cells # Platelet Estimate NORMAL Polychromasia 1+ Poikilocytosis 1+ Anisocytosis 1+ Microcytosis 1+ Sodium Level 144 Potassium Level 3.8 Chloride Level 109 Carbon Dioxide Level 27 Anion Gap 8 Blood Urea Nitrogen 5 L Creatinine 0.46 Est Glomerular Filtrat Rate mL/min > 60 Glucose Level 111 Calcium Level 9.1 Medications Medication Current Medications IV Flush (NS 3 ml) 3 ml PER PROTOCOL IV ; Start 03/03/19 at 18:00 Ondansetron HCl (Zofran Inj) 4 mg Q6H PRN IV NAUSEA/VOMITING; Start 03/03/19 at 18:00 Acetaminophen (Tylenol Tab) 650 mg Q6H PRN PO .PAIN 1-3 OR TEMP Last administered on 03/03/19at 20:10; Admin Dose 650 MG; Start 03/03/19 at 18:00 Acetaminophen/ Hydrocodone Bitart ([place] (5/325)) 1 tab Q6H PRN PO .MOD PAIN 4- 6; Start 03/03/19 at 18:00 Morphine Sulfate (morphine) 2 mg Q4H PRN IV .SEVERE PAIN 7-10; Start 03/03/19 at 18:00 Docusate Sodium (Colace) 100 mg Q12H PRN PO .CONSTIPATION; Start 03/03/19 at 18:00 Magnesium Hydroxide (Milk Of Mag) 30 ml DAILY PRN PO .CONSTIPATION; Start 03/03/19 at 18:00 Lorazepam (Ativan) 0.5 mg Q6H PRN IV ANXIETY; Start 03/03/19 at 18:00 Albuterol/ Ipratropium (Duoneb) 3 ml Q4H RESP THERAPY PRN HHN SHORTNESS OF BREATH; Start 03/03/19 at 18:00 Piperacillin Sod/ Tazobactam Sod 100 ml @ 200 mls/hr Q6 IVPB Last administered on 03/05/19at 12:20; Admin Dose 200 MLS/HR; Start 03/03/19 at 18:00 Hydralazine HCl (Apresoline) 10 mg Q6H PRN IV ELEVATED BLOOD PRESSURE; Start 03/03/19 at 18:00 Nitroglycerin (Nitroglycerin (Sl Tab) 0.4 Mg) 1 tab Q5M PRN SL ANGINA; Start 03/03/19 at 18:00 Docosanol (Abreva) 1 applic 5 TIMES DAILY TOP ; Start 03/05/19 at 15:00 Diphenhydramine HCl (Benadryl) 25 mg Q6H PRN PO ITCHING; Start 03/05/19 at 12:30 ANNAMARIE QUIROZ NP Mar 05, 2019 17:12
[2019-03-05 19:39] VITALS: BP 120/65; PULSE 80; RESP 18
[2019-03-06] MEDS: PIPER-TAZO 3.375 GM IV (PMX) 100 ML IVPB SCH ×5 (00:07→23:58)
[2019-03-06 01:27] VITALS: BP 105/64; PULSE 78; RESP 18
[2019-03-06 07:39] VITALS: BP 132/67; PULSE 70; RESP 16
[2019-03-06] MEDS: DOCOSANOL 2 GM CREAM TOP SCH ×5 (09:00→20:35)
--- NOTE | 2019-03-06 13:29 | CONS ---
Assessment/Plan Assessment/Plan Hospital Course (Demo Recall) Patient is alert feels good denies pain no fevers overnight no nausea vomiting diarrhea no dysuria. WBC today 3.4 platelets 300 BUN 7 creatinine 0.51 Antimicrobials: Zosyn day #5 Physical examination: Well-nourished well-developed fragile middle-aged woman who is alert in no distress. Head atraumatic normocephalic neck is supple chest rise symmetrical breath sounds diminished bases heart S1-S2 abdomen soft bowel sounds present extremities without cyanosis Assessment: 1. Status post neutropenic fevers 2. Advanced breast cancer status post chemo induction Plan: Patient is doing well remains afebrile, continue antibiotics for now, await until neutropenia resolves, follow oncology recommendations Consultation Date/Type/Reason Admit Date/Time Mar 03, 2019 at 16:35 Initial Consult Date Type of Consult id Date/Time of Note DATE: 03/06/19 TIME: 13:29 Exam/Review of Systems Exam Vitals Vital Signs Date Temp Pulse Resp B/P (MAP) Pulse Ox O2 O2 Flow FiO2 Time Delivery Rate 03/06/19 98.2 70 16 132/67 98 07:39 (88) 03/05/19 Room Air 14:05 Intake and Output 03/05/19 03/05/19 03/06/19 1515:00 23:00 07:00 IntakeIntake Total 820 ml 1210 ml 200 ml BalanceBalance 820 ml 1210 ml 200 ml Results Result Diagram: 03/06/19 0453 03/06/19 0453 Results 24hrs Laboratory Tests Test 03/06/19 04:53 White Blood Count 3.4 L Red Blood Count 3.33 L Hemoglobin 9.5 L Hematocrit 28.0 L Mean Corpuscular Volume 84.1 Mean Corpuscular Hemoglobin 28.5 L Mean Corpuscular Hemoglobin Concent 33.9 Red Cell Distribution Width 12.3 Platelet Count 300 # Mean Platelet Volume 9.4 Immature Granulocytes % 8.000 H Neutrophils % Segmented Neutrophils % (Manual) 32 L Band Neutrophils % (Manual) 3 Lymphocytes % Lymphocytes % (Manual) 45 Reactive Lymphocytes % (Manual) 3 H Monocytes % Monocytes % (Manual) 11 Eosinophils % Basophils % Basophils % (Manual) 2 Metamyelocytes % (manual) 1 H Myelocytes % (Manual) 3 H Nucleated Red Blood Cells % 0.6 H Immature Granulocytes # 0.270 H Neutrophils # Neutrophils # (Manual) 1.1 L Band Neutrophils # 0.1 Lymphocytes (Manual) 1.5 Lymphocytes # Reactive Lymphocytes # 0.1 H Monocytes # Monocytes # (Manual) 0.3 Eosinophils # Basophils # Basophils # (Manual) 0.0 Metamyelocytes # 0.0 Myelocytes # 0.1 H Nucleated Red Blood Cells # Platelet Estimate NORMAL Polychromasia 1+ Anisocytosis 1+ Microcytosis 1+ Sodium Level 141 Potassium Level 3.9 Chloride Level 107 Carbon Dioxide Level 26 Anion Gap 8 Blood Urea Nitrogen 7 Creatinine 0.51 Est Glomerular Filtrat Rate mL/min > 60 Glucose Level 103 Calcium Level 9.5 Phosphorus Level 4.7 Magnesium Level 2.1 Medications Medication Current Medications IV Flush (NS 3 ml) 3 ml PER PROTOCOL IV Last administered on 03/06/19at 00:33; Admin Dose 3 ML; Start 03/03/19 at 18:00 Ondansetron HCl (Zofran Inj) 4 mg Q6H PRN IV NAUSEA/VOMITING; Start 03/03/19 at 18:00 Acetaminophen (Tylenol Tab) 650 mg Q6H PRN PO .PAIN 1-3 OR TEMP Last administered on 03/03/19at 20:10; Admin Dose 650 MG; Start 03/03/19 at 18:00 Acetaminophen/ Hydrocodone Bitart ([place] (5/325)) 1 tab Q6H PRN PO .MOD PAIN 4- 6; Start 03/03/19 at 18:00 Morphine Sulfate (morphine) 2 mg Q4H PRN IV .SEVERE PAIN 7-10; Start 03/03/19 at 18:00 Docusate Sodium (Colace) 100 mg Q12H PRN PO .CONSTIPATION; Start 03/03/19 at 18:00 Magnesium Hydroxide (Milk Of Mag) 30 ml DAILY PRN PO .CONSTIPATION; Start 03/03/19 at 18:00 Lorazepam (Ativan) 0.5 mg Q6H PRN IV ANXIETY; Start 03/03/19 at 18:00 Albuterol/ Ipratropium (Duoneb) 3 ml Q4H RESP THERAPY PRN HHN SHORTNESS OF BREATH; Start 03/03/19 at 18:00 Piperacillin Sod/ Tazobactam Sod 100 ml @ 200 mls/hr Q6 IVPB Last administered on 03/06/19at 13:04; Admin Dose 200 MLS/HR; Start 03/03/19 at 18:00 Hydralazine HCl (Apresoline) 10 mg Q6H PRN IV ELEVATED BLOOD PRESSURE; Start 03/03/19 at 18:00 Nitroglycerin (Nitroglycerin (Sl Tab) 0.4 Mg) 1 tab Q5M PRN SL ANGINA; Start 03/03/19 at 18:00 Docosanol (Abreva) 1 applic 5 TIMES DAILY TOP ; Start 03/05/19 at 15:00 Diphenhydramine HCl (Benadryl) 25 mg Q6H PRN PO ITCHING Last administered on 03/05/19at 17:30; Admin Dose 25 MG; Start 03/05/19 at 12:30 SNOW DEMPSEY NP Mar 06, 2019 13:29
--- NOTE | 2019-03-06 13:49 | PDOCDIS ---
Discharge Instructions DIAGNOSIS Discharge Diagnosis Syncope CONDITION 2 [id number] Patient Condition: [id number] Good HOME CARE INSTRUCTIONS: [id number] Diet Instructions: [id number] Regular ACTIVITY: [id number] Activity Restrictions: [id number] No Restrictions FOLLOW UP/APPOINTMENTS Follow-up Plan 1. Continue taking all medications as prescribed. 2. See your primary care doctor in 1-2 weeks. 3. You would benefit from outpatient physical therapy. LUCILA PFEIFFER MD Mar 06, 2019 13:49
--- NOTE | 2019-03-06 14:18 | PN ---
Date/Time of Note Date/Time of Note DATE: 03/06/19 TIME: 14:16 Assessment/Plan VTE Prophylaxis Risk score (from Ns)>0 risk: 4 SCD applied (from Ns): Yes Pharmacological prophylaxis: NA/contraindicated Pharm contraindication: low risk/ambulating Lines/Catheters IV [facility]from [facility] Saline Lock Urinary Cath still in place: No Assessment/Plan Assessment/Plan 43-year-old woman transferred from outside hospital with neutropenic fever with recent chemotherapy about 2 weeks ago for right breast cancer. 1. Neutropenic fever - likely secondary to patient's chemotherapy she received about 2 weeks ago. She did have fever and chills for 1 day prior to admission. White blood cell count today 3.6 - Follow-up ID recommendations and continue on current broad spectrum antibiotics. - Follow up final culture results that were drawn at the outside hospital, as well as here - Follow-up recommendations from hematology/oncology consult as well- The patien t may benefit from Neupogen or another stimulating medication for the white blood cells. Again, we will await their input on this - Continue IV fluids, Tylenol p.r.n. pain and fevers. 2. History of right breast cancer. Again, she was started on chemotherapy earlier this month. - Oncology is following. 3. Normocytic anemia. Appears iron-replete. May be anemia of chronic disease. Result Diagram: 03/06/19 0453 03/06/19 0453 Subjective 24 Hr Interval Summary Free Text/Dictation No acute overnight events. Patient feeling well, good appetite, ambulatory; no symptoms. Exam/Review of Systems Exam Vitals Vital Signs Date Temp Pulse Resp B/P (MAP) Pulse Ox O2 O2 Flow FiO2 Time Delivery Rate 03/06/19 98.2 70 16 132/67 98 07:39 (88) 03/05/19 Room Air 14:05 Intake and Output 03/05/19 03/05/19 03/06/19 1515:00 23:00 07:00 IntakeIntake Total 820 ml 1210 ml 200 ml BalanceBalance 820 ml 1210 ml 200 ml Exam GENERAL: lying in bed, answering questions appropriately. No acute distress. HEENT: Pupils are equal, round, reactive to light. Extraocular muscles are intact. NECK: Supple. No thyromegaly. LUNGS: Clear to auscultation bilaterally. CARDIOVASCULAR: S1, S2 heard. No rubs or gallop. CHEST: Left wall chest port noted clean, dry and intact. ABDOMEN: Soft, nontender, nondistended. Normal bowel sounds. No rebound or guarding. MUSCULOSKELETAL: No lower extremity edema bilaterally. NEUROLOGIC: No focal deficits. Results Results 24hrs Laboratory Tests Test 03/06/19 04:53 White Blood Count 3.4 L Red Blood Count 3.33 L Hemoglobin 9.5 L Hematocrit 28.0 L Mean Corpuscular Volume 84.1 Mean Corpuscular Hemoglobin 28.5 L Mean Corpuscular Hemoglobin Concent 33.9 Red Cell Distribution Width 12.3 Platelet Count 300 # Mean Platelet Volume 9.4 Immature Granulocytes % 8.000 H Neutrophils % Segmented Neutrophils % (Manual) 32 L Band Neutrophils % (Manual) 3 Lymphocytes % Lymphocytes % (Manual) 45 Reactive Lymphocytes % (Manual) 3 H Monocytes % Monocytes % (Manual) 11 Eosinophils % Basophils % Basophils % (Manual) 2 Metamyelocytes % (manual) 1 H Myelocytes % (Manual) 3 H Nucleated Red Blood Cells % 0.6 H Immature Granulocytes # 0.270 H Neutrophils # Neutrophils # (Manual) 1.1 L Band Neutrophils # 0.1 Lymphocytes (Manual) 1.5 Lymphocytes # Reactive Lymphocytes # 0.1 H Monocytes # Monocytes # (Manual) 0.3 Eosinophils # Basophils # Basophils # (Manual) 0.0 Metamyelocytes # 0.0 Myelocytes # 0.1 H Nucleated Red Blood Cells # Platelet Estimate NORMAL Polychromasia 1+ Anisocytosis 1+ Microcytosis 1+ Sodium Level 141 Potassium Level 3.9 Chloride Level 107 Carbon Dioxide Level 26 Anion Gap 8 Blood Urea Nitrogen 7 Creatinine 0.51 Est Glomerular Filtrat Rate mL/min > 60 Glucose Level 103 Calcium Level 9.5 Phosphorus Level 4.7 Magnesium Level 2.1 Medications Medication Current Medications IV Flush (NS 3 ml) 3 ml PER PROTOCOL IV Last administered on 03/06/19at 00:33; Admin Dose 3 ML; Start 03/03/19 at 18:00 Ondansetron HCl (Zofran Inj) 4 mg Q6H PRN IV NAUSEA/VOMITING; Start 03/03/19 at 18:00 Acetaminophen (Tylenol Tab) 650 mg Q6H PRN PO .PAIN 1-3 OR TEMP Last administered on 03/03/19at 20:10; Admin Dose 650 MG; Start 03/03/19 at 18:00 Acetaminophen/ Hydrocodone Bitart ([place] (5/325)) 1 tab Q6H PRN PO .MOD PAIN 4- 6; Start 03/03/19 at 18:00 Morphine Sulfate (morphine) 2 mg Q4H PRN IV .SEVERE PAIN 7-10; Start 03/03/19 at 18:00 Docusate Sodium (Colace) 100 mg Q12H PRN PO .CONSTIPATION; Start 03/03/19 at 18:00 Magnesium Hydroxide (Milk Of Mag) 30 ml DAILY PRN PO .CONSTIPATION; Start 03/03/19 at 18:00 Lorazepam (Ativan) 0.5 mg Q6H PRN IV ANXIETY; Start 03/03/19 at 18:00 Albuterol/ Ipratropium (Duoneb) 3 ml Q4H RESP THERAPY PRN HHN SHORTNESS OF BREATH; Start 03/03/19 at 18:00 Piperacillin Sod/ Tazobactam Sod 100 ml @ 200 mls/hr Q6 IVPB Last administered on 03/06/19at 13:04; Admin Dose 200 MLS/HR; Start 03/03/19 at 18:00 Hydralazine HCl (Apresoline) 10 mg Q6H PRN IV ELEVATED BLOOD PRESSURE; Start 03/03/19 at 18:00 Nitroglycerin (Nitroglycerin (Sl Tab) 0.4 Mg) 1 tab Q5M PRN SL ANGINA; Start 03/03/19 at 18:00 Docosanol (Abreva) 1 applic 5 TIMES DAILY TOP ; Start 03/05/19 at 15:00 Diphenhydramine HCl (Benadryl) 25 mg Q6H PRN PO ITCHING Last administered on 03/05/19at 17:30; Admin Dose 25 MG; Start 03/05/19 at 12:30 LUCILA PFEIFFER MD Mar 06, 2019 14:18
[2019-03-06 14:41] VITALS: BP 129/69; PULSE 82; RESP 16
[2019-03-06 15:26] VITALS: BP 138/75; PULSE 92; RESP 16
[2019-03-06] MEDS: ACETAMINOPHEN 325 MG TAB PO PRN (15:30)
[2019-03-06 20:59] VITALS: BP 115/75; PULSE 73; RESP 16
[2019-03-07 02:21] VITALS: BP 129/72; PULSE 71; RESP 17
[2019-03-07] MEDS: PIPER-TAZO 3.375 GM IV (PMX) 100 ML IVPB SCH ×4 (05:44→23:37)
[2019-03-07 07:58] VITALS: BP 120/73; PULSE 67; RESP 17
[2019-03-07] MEDS: DOCOSANOL 2 GM CREAM TOP SCH ×5 (09:00→21:00)
--- NOTE | 2019-03-07 11:44 | CONS ---
Assessment/Plan Assessment/Plan Hospital Course (Demo Recall) No acute events, afebrile Antimicrobials: Zosyn day #6 Physical examination: Well-nourished well-developed fragile middle-aged woman who is alert in no distress. Head atraumatic normocephalic neck is supple chest rise symmetrical breath sounds diminished bases heart S1-S2 abdomen soft bowel sounds present extremities without cyanosis Assessment: 1. Status post neutropenic fevers 2. Advanced breast cancer status post chemo induction Plan: Dc abx and observe Consultation Date/Type/Reason Admit Date/Time Mar 03, 2019 at 16:35 Initial Consult Date Type of Consult id Date/Time of Note DATE: 03/07/19 TIME: 11:43 Exam/Review of Systems Exam Vitals Vital Signs Date Temp Pulse Resp B/P (MAP) Pulse Ox O2 O2 Flow FiO2 Time Delivery Rate 03/07/19 99.0 67 17 120/73 98 Room Air 07:58 (89) Intake and Output 03/06/19 03/06/19 03/07/19 1515:00 23:00 07:00 IntakeIntake Total 1260 ml 540 ml 200 ml BalanceBalance 1260 ml 540 ml 200 ml Results Result Diagram: 03/07/19 0453 03/07/19 0453 Results 24hrs Laboratory Tests Test 03/07/19 04:53 White Blood Count 3.8 L Red Blood Count 3.60 L Hemoglobin 10.2 L Hematocrit 30.6 L Mean Corpuscular Volume 85.0 Mean Corpuscular Hemoglobin 28.3 L Mean Corpuscular Hemoglobin Concent 33.3 Red Cell Distribution Width 12.3 Platelet Count 381 # Mean Platelet Volume 9.0 Immature Granulocytes % 7.400 H Neutrophils % Segmented Neutrophils % (Manual) 44 Lymphocytes % Lymphocytes % (Manual) 40 Monocytes % Monocytes % (Manual) 14 H Eosinophils % Basophils % Basophils % (Manual) 1 Myelocytes % (Manual) 1 H Nucleated Red Blood Cells % 0.8 H Immature Granulocytes # 0.280 H Neutrophils # Lymphocytes (Manual) 1.5 Lymphocytes # Monocytes # Monocytes # (Manual) 0.5 Eosinophils # Basophils # Basophils # (Manual) 0.0 Myelocytes # 0.0 Nucleated Red Blood Cells # Platelet Estimate NORMAL Giant Platelets 2 H Polychromasia 3+ Anisocytosis 2+ Microcytosis 2+ Sodium Level 142 Potassium Level 4.1 Chloride Level 104 Carbon Dioxide Level 27 Anion Gap 11 Blood Urea Nitrogen 13 Creatinine 0.55 Est Glomerular Filtrat Rate mL/min > 60 Glucose Level 95 Calcium Level 9.4 Medications Medication Current Medications IV Flush (NS 3 ml) 3 ml PER PROTOCOL IV Last administered on 03/06/19at 00:33; Admin Dose 3 ML; Start 03/03/19 at 18:00 Ondansetron HCl (Zofran Inj) 4 mg Q6H PRN IV NAUSEA/VOMITING; Start 03/03/19 at 18:00 Acetaminophen (Tylenol Tab) 650 mg Q6H PRN PO .PAIN 1-3 OR TEMP Last administered on 03/06/19at 15:30; Admin Dose 650 MG; Start 03/03/19 at 18:00 Acetaminophen/ Hydrocodone Bitart ([place] (5/325)) 1 tab Q6H PRN PO .MOD PAIN 4- 6; Start 03/03/19 at 18:00 Morphine Sulfate (morphine) 2 mg Q4H PRN IV .SEVERE PAIN 7-10; Start 03/03/19 at 18:00 Docusate Sodium (Colace) 100 mg Q12H PRN PO .CONSTIPATION; Start 03/03/19 at 18:00 Magnesium Hydroxide (Milk Of Mag) 30 ml DAILY PRN PO .CONSTIPATION; Start 03/03/19 at 18:00 Lorazepam (Ativan) 0.5 mg Q6H PRN IV ANXIETY; Start 03/03/19 at 18:00 Albuterol/ Ipratropium (Duoneb) 3 ml Q4H RESP THERAPY PRN HHN SHORTNESS OF BREATH; Start 03/03/19 at 18:00 Piperacillin Sod/ Tazobactam Sod 100 ml @ 200 mls/hr Q6 IVPB Last administered on 03/07/19at 05:44; Admin Dose 200 MLS/HR; Start 03/03/19 at 18:00 Hydralazine HCl (Apresoline) 10 mg Q6H PRN IV ELEVATED BLOOD PRESSURE; Start 03/03/19 at 18:00 Nitroglycerin (Nitroglycerin (Sl Tab) 0.4 Mg) 1 tab Q5M PRN SL ANGINA; Start 03/03/19 at 18:00 Docosanol (Abreva) 1 applic 5 TIMES DAILY TOP ; Start 03/05/19 at 15:00 Diphenhydramine HCl (Benadryl) 25 mg Q6H PRN PO ITCHING Last administered on 03/05/19at 17:30; Admin Dose 25 MG; Start 03/05/19 at 12:30 SNOW DEMPSEY NP Mar 07, 2019 11:44
--- NOTE | 2019-03-07 13:12 | PN ---
Date/Time of Note Date/Time of Note DATE: 03/07/19 TIME: 13:09 Assessment/Plan VTE Prophylaxis Risk score (from Ns)>0 risk: 4 SCD applied (from Ns): Yes Pharmacological prophylaxis: NA/contraindicated Pharm contraindication: low risk/ambulating Lines/Catheters IV [facility]from [facility] Saline Lock Urinary Cath still in place: No Assessment/Plan Assessment/Plan 43-year-old woman transferred from outside hospital with neutropenic fever with recent chemotherapy about 2 weeks ago for right breast cancer. 1. Neutropenic fever - likely secondary to patient's chemotherapy she received about 2 weeks ago. She did have fever and chills for 1 day prior to admission. - Follow-up ID recommendations and continue on current broad spectrum antibiotics. - Follow up final culture results that were drawn at the outside hospital, as well as here - Per discussion today with Dr. Bush will start neupogen 480mcg subQ daily. Goal ANC >2000 2. History of right breast cancer. Again, she was started on chemotherapy earlier this month. - Oncology is following. 3. Normocytic anemia. Appears iron-replete. May be anemia of chronic disease. Result Diagram: 03/07/19 0453 03/07/19 0453 Subjective 24 Hr Interval Summary Free Text/Dictation No acute overnight events. Patient walking around, feeling well, asymptomatic. I spoke to her daughter Luly on the phone today to update her on the plan. Exam/Review of Systems Exam Vitals Vital Signs Date Temp Pulse Resp B/P (MAP) Pulse Ox O2 O2 Flow FiO2 Time Delivery Rate 03/07/19 99.0 67 17 120/73 98 Room Air 07:58 (89) Intake and Output 03/06/19 03/06/19 03/07/19 1515:00 23:00 07:00 IntakeIntake Total 1260 ml 540 ml 200 ml BalanceBalance 1260 ml 540 ml 200 ml Exam GENERAL: lying in bed, answering questions appropriately. No acute distress. HEENT: Pupils are equal, round, reactive to light. Extraocular muscles are intact. NECK: Supple. No thyromegaly. LUNGS: Clear to auscultation bilaterally. CARDIOVASCULAR: S1, S2 heard. No rubs or gallop. CHEST: Left wall chest port noted clean, dry and intact. ABDOMEN: Soft, nontender, nondistended. Normal bowel sounds. No rebound or guarding. MUSCULOSKELETAL: No lower extremity edema bilaterally. Results Results 24hrs Laboratory Tests Test 03/07/19 04:53 White Blood Count 3.8 L Red Blood Count 3.60 L Hemoglobin 10.2 L Hematocrit 30.6 L Mean Corpuscular Volume 85.0 Mean Corpuscular Hemoglobin 28.3 L Mean Corpuscular Hemoglobin Concent 33.3 Red Cell Distribution Width 12.3 Platelet Count 381 # Mean Platelet Volume 9.0 Immature Granulocytes % 7.400 H Neutrophils % Segmented Neutrophils % (Manual) 44 Lymphocytes % Lymphocytes % (Manual) 40 Monocytes % Monocytes % (Manual) 14 H Eosinophils % Basophils % Basophils % (Manual) 1 Myelocytes % (Manual) 1 H Nucleated Red Blood Cells % 0.8 H Immature Granulocytes # 0.280 H Neutrophils # Lymphocytes (Manual) 1.5 Lymphocytes # Monocytes # Monocytes # (Manual) 0.5 Eosinophils # Basophils # Basophils # (Manual) 0.0 Myelocytes # 0.0 Nucleated Red Blood Cells # Platelet Estimate NORMAL Giant Platelets 2 H Polychromasia 3+ Anisocytosis 2+ Microcytosis 2+ Sodium Level 142 Potassium Level 4.1 Chloride Level 104 Carbon Dioxide Level 27 Anion Gap 11 Blood Urea Nitrogen 13 Creatinine 0.55 Est Glomerular Filtrat Rate mL/min > 60 Glucose Level 95 Calcium Level 9.4 Medications Medication Current Medications IV Flush (NS 3 ml) 3 ml PER PROTOCOL IV Last administered on 03/06/19at 00:33; Admin Dose 3 ML; Start 03/03/19 at 18:00 Ondansetron HCl (Zofran Inj) 4 mg Q6H PRN IV NAUSEA/VOMITING; Start 03/03/19 at 18:00 Acetaminophen (Tylenol Tab) 650 mg Q6H PRN PO .PAIN 1-3 OR TEMP Last administered on 03/06/19at 15:30; Admin Dose 650 MG; Start 03/03/19 at 18:00 Acetaminophen/ Hydrocodone Bitart ([place] (5/325)) 1 tab Q6H PRN PO .MOD PAIN 4- 6; Start 03/03/19 at 18:00 Morphine Sulfate (morphine) 2 mg Q4H PRN IV .SEVERE PAIN 7-10; Start 03/03/19 at 18:00 Docusate Sodium (Colace) 100 mg Q12H PRN PO .CONSTIPATION; Start 03/03/19 at 18:00 Magnesium Hydroxide (Milk Of Mag) 30 ml DAILY PRN PO .CONSTIPATION; Start at 18:00 Lorazepam (Ativan) 0.5 mg Q6H PRN IV ANXIETY; Start 03/03/19 at 18:00 Albuterol/ Ipratropium (Duoneb) 3 ml Q4H RESP THERAPY PRN HHN SHORTNESS OF BREATH; Start 03/03/19 at 18:00 Piperacillin Sod/ Tazobactam Sod 100 ml @ 200 mls/hr Q6 IVPB Last administered on 03/07/19at 12:53; Admin Dose 200 MLS/HR; Start 03/03/19 at 18:00 Hydralazine HCl (Apresoline) 10 mg Q6H PRN IV ELEVATED BLOOD PRESSURE; Start 03/03/19 at 18:00 Nitroglycerin (Nitroglycerin (Sl Tab) 0.4 Mg) 1 tab Q5M PRN SL ANGINA; Start 03/03/19 at 18:00 Docosanol (Abreva) 1 applic 5 TIMES DAILY TOP Last administered on 03/07/19at 12:54; Admin Dose 1 APPLIC; Start 03/05/19 at 15:00 Diphenhydramine HCl (Benadryl) 25 mg Q6H PRN PO ITCHING Last administered on 03/05/19at 17:30; Admin Dose 25 MG; Start 03/05/19 at 12:30 Filgrastim (Neupogen) 480 mcg ONCE ONCE SC ; Start 03/07/19 at 14:00; Stop 03/07/19 at 14:01 LUCILA PFEIFFER MD Mar 07, 2019 13:12
--- NOTE | 2019-03-07 13:48 | CONS ---
Assessment/Plan Assessment/Plan Assessment/Plan (Daily) pleasant 43 yo with locally advanced ER/CT+ her 2 ophelia negative breast ca s/p cycle 1 chemo admitted wit neutropenic fevers cont GCSF daily until,Wbc > 10,000 cont empiric abx f/u cultures cont IVF and supportive care, antiemetics will likely need dose reduction with subsequent treatments she is mildly anemic due top chemo, no intervention check iron studies Consultation Date/Type/Reason Admit Date/Time Mar 03, 2019 at 16:35 Initial Consult Date Date/Time of Note DATE: 03/07/19 TIME: 13:46 24 HR Interval Summary Free Text/Dictation doing better no pain no fevers no SOB no bleeding Constitutional: no complaints, improved Exam/Review of Systems Exam Vitals Vital Signs Date Temp Pulse Resp B/P (MAP) Pulse Ox O2 O2 Flow FiO2 Time Delivery Rate 03/07/19 99.0 67 17 120/73 98 Room Air 07:58 (89) Intake and Output 03/06/19 03/06/19 03/07/19 1515:00 23:00 07:00 IntakeIntake Total 1260 ml 540 ml 200 ml BalanceBalance 1260 ml 540 ml 200 ml Constitutional: alert, oriented, well developed Psych: no complaints, nl mood/affect Head: normocephalic Eyes: nl conjunctiva, EOMI ENMT: nl external ears & nose, nl lips & teeth Neck: supple, non-tender Respiratory: clear to auscultation, normal air movement Cardiovascular: regular rate and rhythm, nl pulses Gastrointestinal: soft, nl liver, spleen Musculoskeletal: nl extremities to inspection Extremities: normal pulses Neurological: [place] TILE FLOOR LAYER II-XII intact Results Result Diagram: 03/07/19 0453 03/07/19 0453 Results 24hrs Laboratory Tests Test 03/07/19 04:53 White Blood Count 3.8 L Red Blood Count 3.60 L Hemoglobin 10.2 L Hematocrit 30.6 L Mean Corpuscular Volume 85.0 Mean Corpuscular Hemoglobin 28.3 L Mean Corpuscular Hemoglobin Concent 33.3 Red Cell Distribution Width 12.3 Platelet Count 381 # Mean Platelet Volume 9.0 Immature Granulocytes % 7.400 H Neutrophils % Segmented Neutrophils % (Manual) 44 Lymphocytes % Lymphocytes % (Manual) 40 Monocytes % Monocytes % (Manual) 14 H Eosinophils % Basophils % Basophils % (Manual) 1 Myelocytes % (Manual) 1 H Nucleated Red Blood Cells % 0.8 H Immature Granulocytes # 0.280 H Neutrophils # Lymphocytes (Manual) 1.5 Lymphocytes # Monocytes # Monocytes # (Manual) 0.5 Eosinophils # Basophils # Basophils # (Manual) 0.0 Myelocytes # 0.0 Nucleated Red Blood Cells # Platelet Estimate NORMAL Giant Platelets 2 H Polychromasia 3+ Anisocytosis 2+ Microcytosis 2+ Sodium Level 142 Potassium Level 4.1 Chloride Level 104 Carbon Dioxide Level 27 Anion Gap 11 Blood Urea Nitrogen 13 Creatinine 0.55 Est Glomerular Filtrat Rate mL/min > 60 Glucose Level 95 Calcium Level 9.4 Medications Medication Current Medications IV Flush (NS 3 ml) 3 ml PER PROTOCOL IV Last administered on 03/06/19at 00:33; Admin Dose 3 ML; Start 03/03/19 at 18:00 Ondansetron HCl (Zofran Inj) 4 mg Q6H PRN IV NAUSEA/VOMITING; Start 03/03/19 at 18:00 Acetaminophen (Tylenol Tab) 650 mg Q6H PRN PO .PAIN 1-3 OR TEMP Last administered on 03/06/19at 15:30; Admin Dose 650 MG; Start 03/03/19 at 18:00 Acetaminophen/ Hydrocodone Bitart ([place] (5/325)) 1 tab Q6H PRN PO .MOD PAIN 4- 6; Start 03/03/19 at 18:00 Morphine Sulfate (morphine) 2 mg Q4H PRN IV .SEVERE PAIN 7-10; Start 03/03/19 at 18:00 Docusate Sodium (Colace) 100 mg Q12H PRN PO .CONSTIPATION; Start 03/03/19 at 18:00 Magnesium Hydroxide (Milk Of Mag) 30 ml DAILY PRN PO .CONSTIPATION; Start 03/03/19 at 18:00 Lorazepam (Ativan) 0.5 mg Q6H PRN IV ANXIETY; Start 03/03/19 at 18:00 Albuterol/ Ipratropium (Duoneb) 3 ml Q4H RESP THERAPY PRN HHN SHORTNESS OF BREATH; Start 03/03/19 at 18:00 Piperacillin Sod/ Tazobactam Sod 100 ml @ 200 mls/hr Q6 IVPB Last administered on 03/07/19at 12:53; Admin Dose 200 MLS/HR; Start 03/03/19 at 18:00 Hydralazine HCl (Apresoline) 10 mg Q6H PRN IV ELEVATED BLOOD PRESSURE; Start 03/03/19 at 18:00 Nitroglycerin (Nitroglycerin (Sl Tab) 0.4 Mg) 1 tab Q5M PRN SL ANGINA; Start 03/03/19 at 18:00 Docosanol (Abreva) 1 applic 5 TIMES DAILY TOP Last administered on 03/07/19at 12:54; Admin Dose 1 APPLIC; Start 03/05/19 at 15:00 Diphenhydramine HCl (Benadryl) 25 mg Q6H PRN PO ITCHING Last administered on 03/05/19at 17:30; Admin Dose 25 MG; Start 03/05/19 at 12:30 Filgrastim (Neupogen) 480 mcg ONCE ONCE SC ; Start 03/07/19 at 14:00; Stop at 14:01 TINO ALEJANDRA Mar 07, 2019 13:48
[2019-03-07] MEDS ORDERED: FILGRASTIM 480 MCG INJ SC ONE (14:00)
[2019-03-07 14:44] VITALS: BP 119/78; PULSE 78; RESP 17
[2019-03-07 20:00] VITALS: BP 141/72; PULSE 82; RESP 18
[2019-03-08 02:00] VITALS: BP 113/64; PULSE 88; RESP 18
[2019-03-08] MEDS: PIPER-TAZO 3.375 GM IV (PMX) 100 ML IVPB SCH (05:55)
[2019-03-08 07:47] VITALS: BP 110/64; PULSE 75; RESP 18
[2019-03-08] MEDS: DOCOSANOL 2 GM CREAM TOP SCH ×2 (09:00→12:30)
--- NOTE | 2019-03-08 12:54 | CONS ---
Consult Date/Type/Reason Admit Date/Time Mar 03, 2019 at 16:35 Initial Consult Date Date/Time of Note DATE: 03/08/19 TIME: 12:51 Subjective better no fever no cough no chills no bleeding Objective Vitals Vital Signs Date Temp Pulse Resp B/P (MAP) Pulse Ox O2 O2 Flow FiO2 Time Delivery Rate 03/08/19 99.0 75 18 110/64 96 07:47 (79) 03/07/19 Room Air 14:44 Intake and Output 03/07/19 03/07/19 03/08/19 1515:00 23:00 07:00 IntakeIntake Total 240 ml 680 ml 320 ml BalanceBalance 240 ml 680 ml 320 ml Exam S1S2 CLEAR LUNGS SOFT ABD Results/Medications Result Diagram: 03/08/1944203/08/19442 Results 24 hrs Laboratory Tests Test 03/08/19 04:43 White Blood Count 37.5 #H Red Blood Count 3.70 L Hemoglobin 10.8 L Hematocrit 32.4 L Mean Corpuscular Volume 87.6 Mean Corpuscular Hemoglobin 29.2 Mean Corpuscular Hemoglobin Concent 33.3 Red Cell Distribution Width 12.5 Platelet Count 448 H Mean Platelet Volume 9.0 Immature Granulocytes % 4.700 H Neutrophils % Segmented Neutrophils % (Manual) 62 Band Neutrophils % (Manual) 28 H Lymphocytes % Lymphocytes % (Manual) 5 L Monocytes % Monocytes % (Manual) 3 Eosinophils % Eosinophils % (Manual) 1 Basophils % Promyelocytes % (Manual) 1 H Nucleated Red Blood Cells % 0.1 H Immature Granulocytes # 1.750 H Neutrophils # Neutrophils # (Manual) 27.2 H Band Neutrophils # 10.5 H Lymphocytes (Manual) 1.8 Lymphocytes # Monocytes # Monocytes # (Manual) 1.1 H Eosinophils # Basophils # Promyelocytes # 0.3 H Nucleated Red Blood Cells # Toxic Granulation 2+ Platelet Estimate NORMAL Giant Platelets 1 H Polychromasia 2+ Anisocytosis 1+ Microcytosis 1+ Spherocytes 1+ Sodium Level 142 Potassium Level 4.3 Chloride Level 105 Carbon Dioxide Level 28 Anion Gap 9 Blood Urea Nitrogen 18 Creatinine 0.79 Est Glomerular Filtrat Rate mL/min > 60 Glucose Level 98 Calcium Level 9.5 Home Meds No Active Prescriptions or Reported Meds Medications Current Medications IV Flush (NS 3 ml) 3 ml PER PROTOCOL IV Last administered on 03/06/19at 00:33; Admin Dose 3 ML; Start 03/03/19 at 18:00 Ondansetron HCl (Zofran Inj) 4 mg Q6H PRN IV NAUSEA/VOMITING; Start 03/03/19 at 18:00 Acetaminophen (Tylenol Tab) 650 mg Q6H PRN PO .PAIN 1-3 OR TEMP Last administered on 03/06/19at 15:30; Admin Dose 650 MG; Start 03/03/19 at 18:00 Acetaminophen/ Hydrocodone Bitart ([place] (5/325)) 1 tab Q6H PRN PO .MOD PAIN 4- 6; Start 03/03/19 at 18:00 Morphine Sulfate (morphine) 2 mg Q4H PRN IV .SEVERE PAIN 7-10; Start 03/03/19 at 18:00 Docusate Sodium (Colace) 100 mg Q12H PRN PO .CONSTIPATION; Start 03/03/19 at 18:00 Magnesium Hydroxide (Milk Of Mag) 30 ml DAILY PRN PO .CONSTIPATION; Start 03/03/19 at 18:00 Lorazepam (Ativan) 0.5 mg Q6H PRN IV ANXIETY; Start 03/03/19 at 18:00 Albuterol/ Ipratropium (Duoneb) 3 ml Q4H RESP THERAPY PRN HHN SHORTNESS OF BREATH; Start 03/03/19 at 18:00 Hydralazine HCl (Apresoline) 10 mg Q6H PRN IV ELEVATED BLOOD PRESSURE; Start 03/03/19 at 18:00 Nitroglycerin (Nitroglycerin (Sl Tab) 0.4 Mg) 1 tab Q5M PRN SL ANGINA; Start 03/03/19 at 18:00 Docosanol (Abreva) 1 applic 5 TIMES DAILY TOP Last administered on 03/08/19at 12:30; Admin Dose 1 APPLIC; Start 03/05/19 at 15:00 Diphenhydramine HCl (Benadryl) 25 mg Q6H PRN PO ITCHING Last administered on 03/05/19at 17:30; Admin Dose 25 MG; Start 03/05/19 at 12:30 Assessment/Plan Hospital Course (Demo Recall) BREAST CANCER POST NEOADJUVANT CHEMOTHERAPY TAC Neutropenic fever neupogen and ABX>> recovered blood counts DC home out pt therapy TINO ALEJANDRA Mar 08, 2019 12:54
[2019-03-08] MEDS ORDERED: FILGRASTIM 480 MCG INJ SC SCH (14:00)
--- NOTE | 2019-03-08 15:20 | CONS ---
Assessment/Plan Assessment/Plan Hospital Course (Demo Recall) No acute events, awake, looks comfortable, no fevers Physical examination: Well-nourished well-developed fragile middle-aged woman who is alert in no distress. Head atraumatic normocephalic neck is supple chest rise symmetrical breath sounds diminished bases heart S1-S2 abdomen soft bowel sounds present extremities without cyanosis Assessment: 1. Status post neutropenic fevers 2. Advanced breast cancer status post chemo induction 3. Leukocytosis, status post Neupogen Plan: Remains stable, antibiotics discontinued, follow oncology recommendations Consultation Date/Type/Reason Admit Date/Time Mar 03, 2019 at 16:35 Initial Consult Date Type of Consult id Date/Time of Note DATE: 03/08/19 TIME: 15:19 Exam/Review of Systems Exam Vitals Vital Signs Date Temp Pulse Resp B/P (MAP) Pulse Ox O2 O2 Flow FiO2 Time Delivery Rate 03/08/19 99.0 75 18 110/64 96 07:47 (79) 03/07/19 Room Air 14:44 Intake and Output 03/07/19 03/07/19 03/08/19 1515:00 23:00 07:00 IntakeIntake Total 240 ml 680 ml 320 ml BalanceBalance 240 ml 680 ml 320 ml Results Result Diagram: 03/08/19 0443 03/08/19 0443 Results 24hrs Laboratory Tests Test 03/08/19 04:43 White Blood Count 37.5 #H Red Blood Count 3.70 L Hemoglobin 10.8 L Hematocrit 32.4 L Mean Corpuscular Volume 87.6 Mean Corpuscular Hemoglobin 29.2 Mean Corpuscular Hemoglobin Concent 33.3 Red Cell Distribution Width 12.5 Platelet Count 448 H Mean Platelet Volume 9.0 Immature Granulocytes % 4.700 H Neutrophils % Segmented Neutrophils % (Manual) 62 Band Neutrophils % (Manual) 28 H Lymphocytes % Lymphocytes % (Manual) 5 L Monocytes % Monocytes % (Manual) 3 Eosinophils % Eosinophils % (Manual) 1 Basophils % Promyelocytes % (Manual) 1 H Nucleated Red Blood Cells % 0.1 H Immature Granulocytes # 1.750 H Neutrophils # Neutrophils # (Manual) 27.2 H Band Neutrophils # 10.5 H Lymphocytes (Manual) 1.8 Lymphocytes # Monocytes # Monocytes # (Manual) 1.1 H Eosinophils # Basophils # Promyelocytes # 0.3 H Nucleated Red Blood Cells # Toxic Granulation 2+ Platelet Estimate NORMAL Giant Platelets 1 H Polychromasia 2+ Anisocytosis 1+ Microcytosis 1+ Spherocytes 1+ Sodium Level 142 Potassium Level 4.3 Chloride Level 105 Carbon Dioxide Level 28 Anion Gap 9 Blood Urea Nitrogen 18 Creatinine 0.79 Est Glomerular Filtrat Rate mL/min > 60 Glucose Level 98 Calcium Level 9.5 Medications Medication Current Medications IV Flush (NS 3 ml) 3 ml PER PROTOCOL IV Last administered on 03/06/19at 00:33; Admin Dose 3 ML; Start 03/03/19 at 18:00 Ondansetron HCl (Zofran Inj) 4 mg Q6H PRN IV NAUSEA/VOMITING; Start 03/03/19 at 18:00 Acetaminophen (Tylenol Tab) 650 mg Q6H PRN PO .PAIN 1-3 OR TEMP Last administered on 03/06/19at 15:30; Admin Dose 650 MG; Start 03/03/19 at 18:00 Acetaminophen/ Hydrocodone Bitart (Randall (5/325)) 1 tab Q6H PRN PO .MOD PAIN 4- 6; Start 03/03/19 at 18:00 Morphine Sulfate (morphine) 2 mg Q4H PRN IV .SEVERE PAIN 7-10; Start 03/03/19 at 18:00 Docusate Sodium (Colace) 100 mg Q12H PRN PO .CONSTIPATION; Start 03/03/19 at 18:00 Magnesium Hydroxide (Milk Of Mag) 30 ml DAILY PRN PO .CONSTIPATION; Start at 18:00 Lorazepam (Ativan) 0.5 mg Q6H PRN IV ANXIETY; Start 03/03/19 at 18:00 Albuterol/ Ipratropium (Duoneb) 3 ml Q4H RESP THERAPY PRN HHN SHORTNESS OF BREATH; Start 03/03/19 at 18:00 Hydralazine HCl (Apresoline) 10 mg Q6H PRN IV ELEVATED BLOOD PRESSURE; Start 03/03/19 at 18:00 Nitroglycerin (Nitroglycerin (Sl Tab) 0.4 Mg) 1 tab Q5M PRN SL ANGINA; Start 03/03/19 at 18:00 Docosanol (Abreva) 1 applic 5 TIMES DAILY TOP Last administered on 03/08/19at 12:30; Admin Dose 1 APPLIC; Start 03/05/19 at 15:00 Diphenhydramine HCl (Benadryl) 25 mg Q6H PRN PO ITCHING Last administered on 03/05/19at 17:30; Admin Dose 25 MG; Start 03/05/19 at 12:30 SNOW DEMPSEY NP Mar 08, 2019 15:20
--- NOTE | 2019-03-08 16:47 | DS ---
Date/Time of Note Date/Time of Note DATE: 03/08/19 TIME: 16:45 Discharge Summary Admission/Discharge Info Admit Date/Time Mar 03, 2019 at 16:35 Discharge Date/Time Mar 08, 2019 at 15:25 Discharge Diagnosis Syncope Patient Condition: Good Consults Dr. Acharya, infectious disease Dr. Bush, oncology Procedures None Hx of Present Illness HISTORY OF PRESENT ILLNESS: A 43-year-old female recently diagnosed with right breast cancer in 11/2018, who started chemotherapy 10 days ago, who was transferred from outside hospital due to insurance purposes. She has been experiencing fevers and chills for the last 24 hours. Again, she received her first chemotherapy 10 days ago. She was doing well until about the last 24 hours when after she had received G-CSF injection in the clinic, she started developing fevers and chills for 1 day. She also complained of some throat pain and some loose stools, but no upper or lower GI bleeding, no diarrhea or constipation, no chest pain or shortness of breath, no headaches or dizziness or loss of consciousness, no significant nausea, vomiting, no signs of any upper or lower GI bleeding. She does have 1 potential sick contact. Apparently, her has been having some cough symptoms for the last 1 to 2 weeks. Denies any dysuria or hematuria. She does have a left chest wall port in place. When she went to the outside ER today, she was found to have a white blood cell count of 1.1 and she also had elevated temperature at the outside hospital, fever noted at 38.4 degrees Celsius and she was given broad broad-spectrum antibio tics. Cultures were drawn and those results are still pending. Rest of her vital signs was stable. She was transferred again over here due to insurance purposes. PAST MEDICAL HISTORY: As stated above. ALLERGIES: NO KNOWN DRUG ALLERGIES. HOME MEDICATIONS: She has been takin. As needed antiemetics at home. 2. Medicines for GERD. PAST SURGICAL HISTORY: Again, she had Port-A-Cath in place. No other surgeries. SOCIAL HISTORY: Negative for smoking, drinking or IV drug abuse. FAMILY HISTORY: Unknown. Hospital Course The patient had no infectious or other symptoms after admission. She spent most of hospital course wandering the hallways. CBC was monitored for several days waiting for ANC to recover but without luck; so on 03/07 she was given subQ neupogen with rapid count recovery the next day. Infectious workup was completely negative. Antibiotics were given empirically for several days then discontinued. Home Meds No Active Prescriptions or Reported Meds Follow-up Plan 1. Continue taking all medications as prescribed. 2. See your primary care doctor in 1-2 weeks. 3. You would benefit from outpatient physical therapy. Primary Care Provider Not On Staff Doctor Time spent on discharge: > 30 minutes Pending Labs Laboratory Tests Test 03/08/19 04:43 White Blood Count 37.5 10^3/ul (4.8-10.8) Red Blood Count 3.70 10^6/ul (4.20-5.40) Hemoglobin 10.8 g/dl (12.0-16.0) Hematocrit 32.4 % (37.0-47.0) Mean Corpuscular Volume 87.6 fl (82.0-101.0) Mean Corpuscular Hemoglobin 29.2 pg (29.0-33.0) Mean Corpuscular Hemoglobin Concent 33.3 g/dl (32.0-37.0) Red Cell Distribution Width 12.5 % (11.5-14.5) Platelet Count 448 10^3/UL (140-415) Mean Platelet Volume 9.0 fl (7.4-10.4) Immature Granulocytes % 4.700 % (0.001-0.429) Neutrophils % % (39.0-77.0) Segmented Neutrophils % (Manual) 62 % (39-77) Band Neutrophils % (Manual) 28 % (0-4) Lymphocytes % % (15.0-51.0) Lymphocytes % (Manual) 5 % (15-51) Monocytes % % (0.0-11.0) Monocytes % (Manual) 3 % (0-11) Eosinophils % % (0.0-7.0) Eosinophils % (Manual) 1 % (0-7) Basophils % % (0.0-2.0) Promyelocytes % (Manual) 1 % (0-0) Nucleated Red Blood Cells % 0.1 /100WBC (0.0-0.0) Immature Granulocytes # 1.750 10^3/ul (0.0-0.031) Neutrophils # 10^3/ul (1.6-7.5) Neutrophils # (Manual) 27.2 10^3/ul (1.6-7.5) Band Neutrophils # 10.5 10^3/ul (0.0-0.6) Lymphocytes (Manual) 1.8 10^3/ul (0.8-2.9) Lymphocytes # 10^3/ul (0.8-2.9) Monocytes # 10^3/ul (0.3-0.9) Monocytes # (Manual) 1.1 10^3/ul (0.3-0.9) Eosinophils # 10^3/ul (0.0-0.5) Basophils # 10^3/ul (0.0-0.1) Promyelocytes # 0.3 10^3/ul (0-0) Nucleated Red Blood Cells # 10^3/ul (0.0-0.0) Toxic Granulation 2+ (0-0) Platelet Estimate NORMAL Giant Platelets 1 % (0-0) Polychromasia 2+ (0-0) Anisocytosis 1+ (0-0) Microcytosis 1+ (0-0) Spherocytes 1+ (0-0) Sodium Level 142 mmol/L (135-144) Potassium Level 4.3 mmol/L (3.5-5.1) Chloride Level 105 mmol/L (97-110) Carbon Dioxide Level 28 mmol/L (21-31) Anion Gap 9 (5-13) Blood Urea Nitrogen 18 mg/dl (7-20) Creatinine 0.79 mg/dl (0.44-1.00) Est Glomerular Filtrat Rate mL/min > 60 mL/min (>60) Glucose Level 98 mg/dl (70-220) Calcium Level 9.5 mg/dl (8.4-10.2) LUCILA PFEIFFER MD Mar 08, 2019 16:46
== END 2019-03-08 15:25 | disposition home or self-care (01) | DRG 810 ==
LOC: 2NE 16:35
PROVIDERS: ADMIT Hospitalist; ATTEND Internal Medicine
DX: D70.1 Agranulocytosis secondary to cancer chemotherapy (principal); C50.911 Malignant neoplasm of unspecified site of right female breast; R50.81 Fever presenting with conditions classified elsewhere; Z17.0 Estrogen receptor positive status [ER+]; R55 Syncope and collapse; D64.81 Anemia due to antineoplastic chemotherapy; Z80.3 Family history of malignant neoplasm of breast; Z80.0 Family history of malignant neoplasm of digestive organs; T45.1X5A Adverse effect of antineoplastic and immunosuppressive drugs, initial encounter
CPT/HCPCS: 80048; 80061; 81003; 83036; 83540; 83605; 83735; 84100; 84439; 84443; 85025; 87086; J2543

== ENCOUNTER 2019-04-15 23:26 | Emergency (ER) | payer OTHER ==
[~2019-04-15] VITALS: Ht 152.4 cm; Wt 59.4 kg
[2019-04-15 23:32] VITALS: Ht 152.4 cm; Wt 59.4 kg
--- NOTE | 2019-04-16 02:50 | ERD ---
ER Documentation Chief Complaint Chief Complaint cough and ST after chemo x 2 days HPI This is a 43-year-old female with a past medical history of breast cancer status post left chest port placement on chemotherapy, last received 8 days ago, now presenting with 2 days of nasal congestion, a productive cough of clear sputum and a sore throat that is worse in the morning. She currently does not have a sore throat. She has not noticed any tonsillar exudate or patches or purulence. She has not noticed any lymphadenopathy. She denies having a fever or chills. She has not had any myalgias. She has not been around any sick contacts. The patient has had no headache or vision changes. The patient does not endorse neck or back pain. The patient denies lightheadedness or dizziness. The patient has had no chest pain or trouble breathing. The patient denies nausea or vomiting. The patient denies abdominal pain. The patient denies changes to bowel movements or urination. The patient has had no focal deficits. The patient has had no weakness or numbness or tingling to the face or extremities. ROS All systems reviewed and are negative except as per history of present illness. Medications Home Meds No Active Prescriptions or Reported Meds Allergies Allergies: Coded Allergies: No Known Drug Allergy (Verified Allergy, Unknown, 02/17/19) PMhx/Soc History of Surgery: Yes (left chest port-a cath february 2019) Anesthesia Reaction: No Hx Neurological Disorder: No Hx Respiratory Disorders: No Hx Cardiac Disorders: No Hx Psychiatric Problems: No Hx Miscellaneous Medical Probl: No (RIGHT BREAST CA) Hx Alcohol Use: No Hx Substance Use: No Hx Tobacco Use: No Smoking Status: Never smoker FmHx Family History: No diabetes Physical Exam Vitals Vital Signs Date Temp Pulse Resp B/P (MAP) Pulse Ox O2 O2 Flow FiO2 Time Delivery Rate 04/16/19 97.8 77 18 114/54 100 Room Air 02:37 (74) 04/15/19 97.8 90 16 121/62 98 23:32 (81) Physical Exam Const: No acute distress Head: Atraumatic Eyes: Normal Conjunctiva ENT: Normal External Ears, Nose and Mouth. Neck: Full range of motion. No meningismus. Resp: Clear to auscultation bilaterally Cardio: Regular rate and rhythm, no murmurs. Left chest port present. Abd: Soft, non tender, non distended. Normal bowel sounds Skin: No petechiae or rashes Back: No midline or flank tenderness Ext: No cyanosis, or edema Neur: Awake and alert Psych: Normal Mood and Affect Procedures/MDM MDM The patient's presentation warrants further investigation. Previous medical records, if available, were reviewed. IMAGING Imaging and Radiology interpretation reviewed. CXR 1V Interpreted by me Soft Tissue: No acute abnormalities. Left chest port present. Bones: No acute abnormalities Mediastinum/Cardiac Silhouette: Unremarkable. No widened mediastinum. Lungs: No acute abnormalities. Normal pulmonary vasculature. No pneumothorax. No pulmonary edema. Clear costal diaphragmatic angles. No pleural effusions. No opacity or consolidations concerning for pneumonia. TREATMENT/DISPOSITION The patient presents for cough and congestion. An upper respiratory infection is certainly a possibility. The patient is afebrile with normal vital signs. The patient's chest x-ray is unremarkable. I have very low suspicion for pneumonia or bronchitis. The patient does not have any tonsillar exudate. She does not have any lymphadenopathy. She does not have a fever. She does have a cough. The patient does not meet any Centor criteria. I have very low suspicion for strep pharyngitis, and I do not feel the patient requires any further diagnostic testing for this. I do not suspect retropharyngeal abscess or peritonsillar abscess or bacterial tracheitis. I do not suspect sinusitis. The patient does not appear systemically ill. I do not suspect sepsis. DISCHARGE Upon reevaluation of the patient, symptoms have improved. No emergent diagnoses were identified. At this time, I feel that the patient stable for discharge. The patient was instructed to follow-up with a primary care physician in 1-3 days. The patient will be given strict precautions with which to return to the emergency department. Prescriptions: None. The patient may take nasal decongestions [id number]. Disclaimer: Inadvertent spelling and grammatical errors are likely due to EHR/dictation software use and do not reflect on the overall quality of patient care. Note that the electronic time recorded on this note does not necessarily reflect the actual time of the patient encounter. Departure Diagnosis: Primary Impression: Upper respiratory infection URI type: unspecified URI Qualified Codes: J06.9 - Acute upper respiratory infection, unspecified Additional Impression: Cough Condition: Stable Patient Instructions: Cough, Chronic, Uncertain Cause, (Adult), Preventing Common Respiratory Infections Additional Instructions: Thank you for for coming to [facility] for your care today. Please ask your nurse or provider if you have questions about your care today and do not leave until all your questions have been answered. Please use any medications given as directed and follow-up with your doctor (or the doctor you were referred to) in the next 1-3 days. If you do not have a primary care doctor you may follow up at [place] [facility] [place] [facility] (listed below). You may also use motrin and tylenol as needed for fever and/or pain unless instructed otherwise by your provider or nurse. Indications for more urgent follow-up have been discussed, but you may return to the Emergency Department at ANY time for any worrisome or worsening symptoms. If you have abdominal pain, please know that no test or exam you received is perfect and you should follow up within 8 hours for continued pain. If you had any imaging studies today, such as an X-Ray or CT Scan, these studies will be reviewed later by a radiologist. You will be called if there are important findings that were not identified today, so make sure the contact information you provided at registration is correct. If you received any narcotic pain control medicine today, such as Vicodin, Morphine or Dilaudid, your coordination and judgment may be affected for a number of hours. Please do not drive or operate heavy machinery, and you may wa nt someone to assist you at home. If you were given a prescription for narcotic medication, be aware that it is very addictive- use sparingly and only if necessary. PLEASE SEEK FURTHER EVALUATION AND MANAGEMENT AT YOUR DOCTORS OFFICE WITHIN THE NEXT 1-3 DAYS. IT IS YOUR RESPONSIBILITY TO MAKE AN APPOINTMENT FOR FOLOW-UP CARE. IF YOU HAVE A PRIMARY DOCTOR, PLEASE CALL THEIR OFFICE TO SCHEDULE AN APPOINTMENT FOR FOLLOW UP. IF YOU DO NOT HAVE A PRIMARY DOCTOR YOU CAN CALL OUR PHYSICIAN REFERRAL HOTLINE AT IF YOU CAN NOT AFFORD TO SEE A PHYSICIAN YOU CAN CHOSE FROM THE FOLLOWING [facility]: [facility] [id number] [facility] [address] [facility] [address] [facility] [address] [facility] [address] [facility]. [facility]. [address] LEONIDES SOLIS MD April 16, 2019 02:50
[2019-04-16 04:20] VITALS: BP 117/70; PULSE 74; RESP 18
== END 2019-04-16 04:22 | disposition home or self-care (01) ==
LOC: E/R 23:26
DX: J06.9 Acute upper respiratory infection, unspecified (principal)
CPT/HCPCS: 71045; Z7502

== ENCOUNTER 2019-05-05 08:42 | Day surgery (SDC) | payer OTHER ==
--- NOTE | 2019-05-03 17:46 | PREOPHP ---
DATE OF ADMISSION: 05/05/2019 SCHEDULE FOR SURGERY: 05/05/2019. 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 She presented with a 2-year history of a mass in the right breast and was initially seen in November 2018 with a 3 cm mass at 9 to 10 o'clock extending under the areolar border with enlarged axillary lymph node. Core biopsy revealed invasive ductal carcinoma and ductal carcinoma in situ and core biopsy of the right axillary lymph node revealed metastatic cancer. The tumor was estrogen and progesterone receptor positive and HER-2 negative. She underwent neoadjuvant chemotherapy with her last chemotherapy on 04/07/2019. She became ill in February of 2019, was hospitalized with sepsis and shortness of breath as a chemotherapy related complication, all of which resolved. There are plans for additional chemotherapy postoperatively. The patient is scheduled to have right breast partial mastectomy with right axillary lymph node dissection. PAST MEDICAL HISTORY: MEDICATIONS: None. ALLERGIES: NONE. OPERATIONS: None. REVIEW OF SYSTEMS: 2, para 2. Last menstrual period 2014. PHYSICAL EXAMINATION: GENERAL: The patient is 4 feet 9 inches, 134 pounds. VITAL SIGNS: Within normal limits. HEENT: Within normal limits. LUNGS: Clear. HEART: Regular rhythm. BREASTS: Moderately large and ptotic. Left breast is unremarkable. Right breast has a persistent 2 to 3 cm mass at 10 o'clock adjacent to the areola border without any fixation of overlying skin. There is no longer any palpable lymphadenopathy. ABDOMEN: Soft. PELVIC AND RECTAL: Per primary care physicians. EXTREMITIES: Without edema. NEUROLOGIC: Physiologic. IMPRESSION: Invasive ductal carcinoma of right breast metastatic to axillary lymph node, status post neoadjuvant chemotherapy. PLAN: Right breast partial mastectomy and right axillary lymph node dissection. I have had a full discussion with the patient regarding the nature of her condition, the nature of the surgery, indications, alternatives, options and risks including bleeding, infection, injury to adjacent structures or organs, neuralgia, deformity or scarring of the breast and nipple, need for additional treatment that could include some or all of surgery, chemotherapy, hormonal blockade, radiation therapy, etc. All questions have been answered. She understands and agrees to proceed. Dictated By: BRUCE FELIZ/HARIKA Conf#: [id number] DID#: [id number] MTDD
[2019-05-04 11:21] VITALS: BMI 24.8
[~2019-05-05] VITALS: Ht 149.9 cm; Wt 58.6 kg
[2019-05-05] VITALS (20 sets, daily range): BP systolic 116–154; BP diastolic 64–96; PULSE 74–113; RESP 10–20; Ht 149.9 cm; Wt 58.6 kg
[~2019-05-05 08:42] MED LIST: CEFAZOLIN 1 GM INJ ONE; CEFAZOLIN 2 GM/50 ML (PMX) 50 ML IVPB SCH; SOD CHLORIDE 0.9% 1,000 ML IV SCH
--- NOTE | 2019-05-05 10:13 | HPN ---
Date/Time of Note Date/Time of Note DATE: 05/05/19 TIME: 10:12 Interval H&P Admission Note Pt. seen H&P reviewed: No system changes BRUCE DE LA TORRE May 05, 2019 10:13
--- NOTE | 2019-05-05 10:30 | PREAC ---
Date/Time of Note Date/Time of Note DATE: 05/05/19 TIME: 10:28 Anesthesia Eval and Record Evaluation Time Pre-Procedure Interview DATE: 05/05/19 TIME: 10:28 Age 43 Sex female NPO: 8 hrs Preoperative diagnosis right breast CA Planned procedure Right mastectomy and lymph node dissection Past Medical History Past Medical History: Includes Musculoskeletal: Other (Breast CA, s/p chemo) Surgery & Anesthesia Issues No known issue (uterine cyst) Meds Anticoagulation: No Beta Jennifer within 24 hr: No Reason Beta Jennifer not given: Pt. not on B-Jennifer No Active Prescriptions or Reported Meds Current Medications Cefazolin Sodium/ Dextrose 50 ml @ 100 mls/hr PREOP IVPB ; Start 05/05/19 at 06:30; Stop 05/05/19 at 20:00 Sodium Chloride 1,000 ml @ 75 mls/hr [id number] IV ; Start 05/05/19 at 06:30; Stop 05/05/19 at 20:00 Meds reviewed: Yes Allergies Coded Allergies: No Known Drug Allergy (Verified Allergy, Unknown, 05/05/19) Allergies Reviewed: Yes Labs/Studies Labs Reviewed: Reviewed by anesthesiologist test: Negative Pre-procedure Exam Last vitals Vital Signs Date Temp Pulse Resp B/P (MAP) Pulse Ox O2 O2 Flow FiO2 Time Delivery Rate 05/05/19 96.8 74 16 135/64 100 Room Air 10:19 (87) Airway: Adequate mouth opening, Adequate thyromental dist Mallampati: Mallampati II Teeth: Normal Lung: Normal Heart: Normal ASA Physical Status ASA physical status: 3 Emergency: None Planned Anesthetic General/MAC: ETT Pre-operative Attestations Prior to commencing anesthesia and surgery, the patient was re-evaluated, there was verification of: *The patient's identity *The results of appropriate recent lab work and preoperative vital signs *The above evaluation not changing prior to induction *Anesthetic plan, risk benefits, alternative and complications discussed with patient/family; questions answered; patient/family understands, accepts and wishes to proceed. Pass Worker used GABY SCHROEDER CRNA May 05, 2019 10:30
[2019-05-05] MEDS ORDERED: HYDROmorphONE 2 MG/ML SYG ONE (11:03)
[2019-05-05] MEDS ORDERED: ONDANSETRON 4 MG INJ ONE (11:37)
[2019-05-05] MEDS ORDERED: METOCLOPRAMIDE 10 MG INJ ONE (11:37)
[2019-05-05] MEDS ORDERED: LIDOCAINE 2% (SDV) 5 ML INJ ONE (11:39)
[2019-05-05] MEDS ORDERED: PROPOFOL 40 ML ONE (11:39)
[2019-05-05] MEDS ORDERED: EPHEDrine 25 MG/5 ML SYG ONE (11:41)
[2019-05-05] MEDS ORDERED: DEXAMETHASONE 4 MG/ML 5 ML INJ ONE (11:47)
[2019-05-05] MEDS ORDERED: ONDANSETRON 4 MG INJ IV PRN ×2 (13:00)
[2019-05-05] MEDS ORDERED: OXYCODONE/ACETAMINOPHEN (5/325) TAB PO PRN ×2 (13:00)
[2019-05-05] MEDS ORDERED: HYDROmorphONE 1 MG/ML SYG SC PRN (13:00)
[2019-05-05] MEDS ORDERED: HYDROCODONE/APAP (5/325) TAB PO PRN (13:00)
[2019-05-05] MEDS ORDERED: FENTAnyl 50 MCG/ML VIAL IV PRN ×2 (13:00)
[2019-05-05] MEDS ORDERED: LABETALOL HCL 20MG INJ IV PRN (13:00)
[2019-05-05] MEDS ORDERED: ACETAMINOPHEN 325 MG TAB PO PRN (13:00)
[2019-05-05] MEDS ORDERED: DIPHENHYDRAMINE 25 MG CAP PO PRN (13:00)
[2019-05-05] MEDS ORDERED: MEPERIDINE 25 MG INJ IV PRN (13:00)
--- NOTE | 2019-05-05 13:00 | SIPON ---
Date/Time of Note Date/Time of Note DATE: 05/05/19 TIME: 12:58 Operative Report Preoperative Diagnosis carcinoma right breast Postoperative Diagnosis same Operation/Procedure Performed right breast partial mastectomy and right axillary lymph node dissection Surgeon see signature line trading assistant none Anesthesia: general Estimated blood loss: minimal Transfusion Required none Specimen right breast cancer; right axillary lymph nodes Grafts/Implants none Complications none BRUCE DE LA TORRE May 05, 2019 13:00
--- NOTE | 2019-05-05 13:01 | PAC ---
Date/Time of Note Date/Time of Note DATE: 05/05/19 TIME: 13:00 Post-Anesthesia Notes Post-Anesthesia Note Last documented vital signs 132/74, 100%, 90, 15, 97.3 Vital Signs Date Temp Pulse Resp B/P (MAP) Pulse Ox O2 O2 Flow FiO2 Time Delivery Rate 05/05/19 96.8 74 16 135/64 100 Room Air 10:19 (87) Activity: WNL Respiratory function: WNL Cardiovascular function: WNL Mental status: Baseline Pain reasonably controlled: Yes Hydration appropriate: Yes Nausea/Vomiting absent: Yes GABY SCHROEDER CRNA May 05, 2019 13:01
[2019-05-05] MEDS ORDERED: CEFAZOLIN 2 GM/50 ML (PMX) 50 ML IVPB SCH (14:00)
[2019-05-05] MEDS: D5W-0.45 NACL + KCL 20 MEQ 1,000 ML IV SCH (15:11)
[2019-05-05] MEDS: CEFAZOLIN 2 GM/50 ML (PMX) 50 ML IVPB SCH (21:06)
[2019-05-06] VITALS: BP 109/55; PULSE 83; RESP 20
[2019-05-06] MEDS: D5W-0.45 NACL + KCL 20 MEQ 1,000 ML IV SCH ×2 (01:39→08:51)
--- NOTE | 2019-05-06 03:15 | OPR ---
DATE OF OPERATION: 05/05/2019 SURGEON: Bruce Cline MD REAL ESTATE APPRAISER SURGEON: None. ANESTHESIOLOGIST: Solis Tran CRNA TYPE OF ANESTHESIA: General. PREOPERATIVE DIAGNOSIS: Invasive ductal carcinoma right breast, metastatic to right axillary lymph node status post neoadjuvant chemotherapy. POSTOPERATIVE DIAGNOSIS: Invasive ductal carcinoma right breast, metastatic to right axillary lymph node status post neoadjuvant chemotherapy. OPERATION PERFORMED: Right breast partial mastectomy with right axillary lymph node dissection. DESCRIPTION OF PROCEDURE: The patient was taken to the operating room and under general anesthesia, with sequential compression device stockings in place, she was prepped and draped in the usual fashion. The mass was located at 10 o'clock in the lateral right breast lateral to the areolar border. A curvilinear incision was made, achieving hemostasis with cautery and dissecting flaps circumferentially, elevating the nipple areola complex. A wide excision was performed orienting the specimen with suture markers anterior, superior and medial. Hemostasis was carefully achieved with cautery and the Voyant electrosurgical device. The specimen was given to the pathologist who confirmed clear margins. The field was irrigated. After ascertaining hemostasis was secure, the incision was closed with interrupted deep dermal subcutaneous 3-0 Vicryl followed by continuous 4-0 Monocryl subcuticular suture. Attention was then directed to the right axilla. A vertical incision was made achieving hemostasis with cautery. The clavipectoral fascia was incised and lymph node dissection was performed starting at the axillary vein and continuing inferiorly using the Voyant electrosurgical device and orienting the specimen for the pathologist who confirmed multiple nodes, the largest was definitely pathologic. Through a separate stab incision inferolaterally, a 19 mm round Omkar drain was placed into the axilla and sutured to the skin with a 2-0 nylon skin suture. The clavipectoral fascia was closed with interrupted 3-0 Vicryl, subcutaneous sutures were closed with interrupted 3-0 Vicryl and skin closed with continuous 4-0 Monocryl subcuticular suture. Mastisol and 1/2-inch Steri- Strips were applied to both incisions followed by dry sterile dressing. Final sponge and needle counts were correct. The patient tolerated the procedure well and left the operating room in good condition. Dictated By: BRUCE FELIZ/HARIKA Conf#: [id number] [facility]#: [id number] MTDD
[2019-05-06] MEDS: CEFAZOLIN 2 GM/50 ML (PMX) 50 ML IVPB SCH (05:35)
[2019-05-06 07:26] VITALS: BP 121/64; PULSE 68; RESP 15
--- NOTE | 2019-05-06 08:55 | PN ---
Date/Time of Note Date/Time of Note DATE: 05/06/19 TIME: 08:53 Assessment/Plan Lines/Catheters IV Catheter Type (from Nrsg): Peripheral IV Capps in Place (from Nrsg): No Subjective Detailed Summary Free Text/Dictation AVSS Doing well with minimal pain. Right breast and axilla incisions clean with intact steristrips, moderate swelling MEG 20cc overnight 12 hours - serosang Imp. Stable Plan: Discharge Rx [place] #30 f/u office [facility] 05/10 instructions/limitations/supplies discussed/provided Exam/Review of Systems Vital Signs Vitals Vital Signs Date Temp Pulse Resp B/P (MAP) Pulse Ox O2 O2 Flow FiO2 Time Delivery Rate 05/06/19 98.3 68 15 121/64 100 Room Air 07:26 (83) 05/05/19 8.0 12:57 Intake and Output 05/05/19 05/05/19 05/06/19 1515:00 23:00 07:00 IntakeIntake Total 900 ml 1350 ml 1315 ml OutputOutput Total 5 ml 500 ml 520 ml BalanceBalance 895 ml 850 ml 795 ml BRUCE DE LA TORRE May 06, 2019 08:55
== END 2019-05-06 11:40 | disposition home or self-care (01) ==
LOC: SDS 08:42 → UNDOADMIN 13:28 → REC 13:28 → MS1 13:51 → REC 13:51 → MS1 14:00 → SDS 05-06 11:40
PROVIDERS: ATTEND Surgery
DX: C50.911 Malignant neoplasm of unspecified site of right female breast (principal)
CPT/HCPCS: 19301; 38500; 88307; 88313; J0690; J1170; J2405; J2765; J3480; Z7512; Z7610; J1100

== ENCOUNTER 2019-09-25 17:33 | Emergency (ER) | payer OTHER ==
[~2019-09-25] VITALS: Ht 149.9 cm; Wt 59.3 kg
[~2019-09-25 17:33] MED LIST changes: -CEFAZOLIN 1 GM INJ ONE; -CEFAZOLIN 2 GM/50 ML (PMX) 50 ML IVPB SCH; +NITR-58 PO; +ONDA4TAB14 PO; -SOD CHLORIDE 0.9% 1,000 ML IV SCH
[2019-09-25 17:50] VITALS: BP 143/74; PULSE 88; RESP 18; Ht 149.9 cm; Wt 59.3 kg
== END 2019-09-25 18:30 | disposition home or self-care (01) ==
LOC: E/R 17:33
DX: N39.0 Urinary tract infection, site not specified (principal)
CPT/HCPCS: 99283